=== PATIENT | male | born 1950 | race Asian ===

== ENCOUNTER 2019-02-13 01:29 | Outpatient (CLI) | payer OTHER, SELFPAY ==
--- NOTE | 2019-02-13 10:35 | MERGE_ITS ---
*[facility]* *[facility]* [address] [place] [address] Date of study: 02/13/2019 Transthoracic Echocardiography M-mode, complete 2D, complete spectral Doppler, and color Doppler *STUDY CONCLUSIONS* Summary: 1. Left ventricle: The cavity size was normal. Systolic function was mildly to moderately reduced. The estimated ejection fraction was 40%. Diffuse hypokinesis. Diastolic parameters were normal for age. There was no evidence of elevated ventricular filling pressure by Doppler parameters. 2. Aortic valve: Bicuspid. There was very mild stenosis. There was moderate regurgitation. Peak velocity (S): 1.6m/sec. Mean gradient (S): 6.7mm Hg. VTI ratio of LVOT to aortic valve: 0.45. Valve area (VTI): 1.7cm^2. 3. Mitral valve: There was moderate regurgitation directed posteriorly. 4. Right ventricle: The cavity size was normal. Wall thickness was normal. Systolic function was normal. 5. Atrial septum: No defect or patent foramen ovale was identified. 6. Pulmonary arteries: Pulmonary systolic pressure was in the range of 25mm Hg to 35mm Hg. 7. Inferior vena cava: The vessel was patent and normal in size. The respirophasic diameter changes were in the normal range (greater than or equal to 50%), consistent with normal central venous pressure. *PATIENT PRESENTATION* Height: 172.7cm ((68in) ) S/D Pressure: 117 / 71 Weight: 89.4kg ((196.6lb) ) BSA: 2.09m^2 Test start time: 10:40 AM. Test stop time: 11:40 AM. CONSULTING Unknown, Unknown PERFORMING Unknown ORDERING Leodan Baptiste REFERRING Leodan Baptiste PERFORMING [facility] CASH APPLICATIONS MANAGER RT Agnieszka Mckeon)([email or web address]), [facility] *PROCEDURE DATA* Procedure information: The patient was identified by two identifiers. This study was interpreted by [facility]. Pertinent images and digital data are archived for permanent storage and are available for subsequent review. No prior study was available for comparison. Study status: Routine. Transthoracic echocardiography. M-mode, complete 2D, complete spectral Doppler, and color Doppler. A Transthoracic Echocardiogram was performed. Scanning was performed from the parasternal, apical, subcostal, and suprasternal notch acoustic windows. Images were obtained using an [id number] cardiac ultrasound machine. Image quality was good. Study completion: The patient tolerated the procedure well. History: PMH: AI, Cardiomyopathy. I42.9, i35.1. *CARDIAC ANATOMY* Left ventricle: The cavity size was normal. Systolic function was mildly to moderately reduced. The estimated ejection fraction was 40%. Diffuse hypokinesis. The tissue Doppler parameters were abnormal. Diastolic parameters were normal for age. There was no evidence of elevated ventricular filling pressure by Doppler parameters. Aortic valve: Bicuspid. Doppler: There was very mild stenosis. There was moderate regurgitation. VTI ratio of LVOT to aortic valve: 0.45. Valve area (VTI): 1.7cm^2. Indexed valve area (VTI): 0.8cm^2/m^2. Peak velocity ratio of LVOT to aortic valve: 0.39. Valve area (Vmax): 1.4cm^2. Indexed valve area (Vmax): 0.7cm^2/m^2. Mean velocity ratio of LVOT to aortic valve: 0.4. Valve area (Vmean): 1.5cm^2. Indexed valve area (Vmean): 0.7cm^2/m^2. Mean gradient (S): 6.7mm Hg. Peak gradient (S): 10.1mm Hg. Aorta: Aortic root: The aortic root was normal in size. Ascending aorta: The ascending aorta was normal in size. Mitral valve: Doppler: There was no evidence for stenosis. There was moderate regurgitation directed posteriorly. Valve area by pressure half-time: 4.2cm^2. Indexed valve area by pressure half-time: 2cm^2/m^2. Left atrium: The atrium was normal in size. Atrial septum: No defect or patent foramen ovale was identified. Right ventricle: The cavity size was normal. Wall thickness was normal. Systolic function was normal. Pulmonic valve: Doppler: There was no evidence for stenosis. There was mild regurgitation. Peak gradient (S): 5.8mm Hg. Tricuspid valve: Doppler: There was mild regurgitation. Pulmonary artery: Poorly visualized. Pulmonary systolic pressure was in the range of 25mm Hg to 35mm Hg. Right atrium: The atrium was normal in size. Pericardium: There was no pericardial effusion. Systemic veins: Inferior vena cava: Well visualized. The vessel was patent and normal in size. The respirophasic diameter changes were in the normal range (greater than or equal to 50%), consistent with normal central venous pressure. Baseline ECG: Bradycardia. Measurements Left ventricle Value Reference LV ID, ED, PLAX 5.4 cm 3.5 - 6.0 LV ID, ES, PLAX (H) 4.3 cm 2.1 - 4.0 LV PW thickness, ED, PLAX 1.0 cm LV end-diastolic volume, 1-p A2C 118 ml LV ejection fraction, 1-p A2C 34 % LV end-diastolic volume, 1-p A4C 121 ml LV ejection fraction, 1-p A4C 37 % LV e', lateral 0.061 m/sec LV E/e', lateral 10 LV e', medial 0.051 m/sec LV E/e', medial 12 LV e', average 0.056 m/sec LV E/e', average 11 Ventricular septum Value Reference IVS thickness, ED, PLAX 1.1 cm LVOT Value Reference LVOT ID, A-P 2.2 cm LVOT area 3.7 cm^2 LVOT peak velocity, S 0.62 m/sec LVOT mean velocity, S 0.5 m/sec LVOT VTI, S 15.7 cm LVOT peak gradient, S 1.6 mm Hg LVOT mean gradient, S 1.1 mm Hg Stroke volume (SV), LVOT DP 58 ml Stroke index (SV/bsa), LVOT DP 28 ml/m^2 Aortic valve Value Reference Aortic valve peak velocity, S 1.6 m/sec Aortic valve mean velocity, S 1.25 m/sec Aortic valve VTI, S 35.0 cm Aortic mean gradient, S 6.7 mm Hg Aortic peak gradient, S 10.1 mm Hg VTI ratio, LVOT/AV 0.45 Aortic valve area, VTI 1.7 cm^2 Velocity ratio, peak, LVOT/AV 0.39 Aortic valve area, peak velocity 1.4 cm^2 Velocity ratio, mean, LVOT/AV 0.4 Aortic valve area, mean velocity 1.5 cm^2 Aortic valve area/bsa, mean velocity 0.7 cm^2/m^2 Aortic regurg deceleration 280 cm/s^2 Aortic regurg pressure half-time 494 ms Aorta Value Reference Aortic root ID, ED 3.6 cm Ascending aorta ID, A-P, S 3.4 cm Left atrium Value Reference LA ID, A-P, ES 3.6 cm LA ID/bsa, A-P 1.7 cm/m^2 <=2.2 LA area, ES, A4C 16.4 cm^2 8.8 - 23.4 LA area, ES, A2C 19 cm^2 LA volume, ES, 2-p 50 ml LA volume/bsa, ES, 2-p 24 ml/m^2 LA/aortic root ratio 1.01 Mitral valve Value Reference Mitral E-wave peak velocity 0.63 m/sec Mitral A-wave peak velocity 0.89 m/sec Mitral deceleration time 182 ms 150 - 230 Mitral pressure half-time 53 ms Mitral E/A ratio, peak 0.7 Mitral valve area, PHT, DP 4.2 cm^2 Tricuspid valve Value Reference Tricuspid regurg peak velocity 2.5 m/sec Tricuspid peak RV-RA gradient 25.9 mm Hg Right atrium Value Reference RA area, ES, A4C 11.7 cm^2 8.3 - 19.5 Pulmonic valve Value Reference Pulmonic peak gradient, S 5.8 mm Hg Legend: (L) and (H) patrciia values outside specified reference range. I have personally reviewed the images and have reviewed and edited the reported findings. Electronically signed by Mayco Bashir MD 02/13/2019 17:13
== END 2019-02-13 01:49 ==
PROVIDERS: Visit Provider Student in an Organized Health Care Education/Training Program
DX: I35.2 Nonrheumatic aortic (valve) stenosis with insufficiency (principal); I42.9 Cardiomyopathy, unspecified; I34.0 Nonrheumatic mitral (valve) insufficiency
CPT/HCPCS: 93306

== ENCOUNTER 2019-04-20 09:07 | Outpatient (REF) | payer OTHER, SELFPAY ==
[2019-04-20 10:30] LABS: Abs Immature Grans 0.01 k/cumm (0.0-0.09); Absolute Basophil Count 0.02 k/cumm (0.0-0.2); Absolute Eosinophil Count 0.14 k/cumm (0.0-0.7); Absolute Monocyte Count 0.85 k/cumm (0.11-0.7); Absolute Neutrophil Count 2.54 k/cumm (1.2-6.7); Basophils % 0.4; Eosinophils % 2.5; HCT 46.4 % (40.0-50.0); HGB 15.4 g/dL (13.5-17.5); Immature Grans % 0.2; Lymphocytes % 37.1; Mean Corp. HGB Concentration 33.2 g/dL (32.0-36.0); Mean Corpuscular Hemoglobin 29.8 pg (27.0-33.0); Mean Corpuscular Volume 89.9 fL (80-95); Mean Platelet Volume 11.2 fL (8.0-11.0); Neutrophils % 44.8; Platelet Count 185 x1000/uL (130-400); RBC 5.16 m/cumm (4.50-6.00); RBC Distribution Width 13.6 % (11.8-14.1); White Blood Cell Count 5.66 k/cumm (4.4-10.8)
[2019-04-20 10:49] LABS: Magnesium 2.2 mg/dL (1.8-2.4); NT-proBNP 98 pg/mL; TSH (W/Ref FT4) 2.75 uIU/mL (0.36-3.74)
[2019-04-20 14:03] LABS: Calculated LDL 173 mg/dL; Cholesterol 252 mg/dL (50-200); HDL Cholesterol 44 mg/dL (40-60); Triglyceride 175 mg/dL (30-150)
[2019-04-21 11:06] LABS: ALT 28 U/L (12-78); AST 18 U/L (15-37); Alkaline Phosphatase 100 U/L (46-116); Bilirubin, Direct 0.13 mg/dL (0.00-0.20); Bilirubin, Total 0.9 mg/dL (0.2-1.0); Total Protein 7.4 g/dL (6.4-8.2)
== END 2019-04-20 09:27 ==
LOC: LBN 09:07
PROVIDERS: Visit Provider Student in an Organized Health Care Education/Training Program
DX: I42.9 Cardiomyopathy, unspecified (principal); I10 Essential (primary) hypertension; I48.0 Paroxysmal atrial fibrillation
CPT/HCPCS: 80061; 80076; 83721; 83735; 83880; 84443; 85025

== ENCOUNTER 2019-04-21 09:59 | Outpatient (REF) | payer OTHER, SELFPAY ==
[2019-04-21 10:23] LABS: INR 0.9 (0.9-1.1); Prothrombin Time 8.9 sec (9.3-11.0)
== END 2019-04-21 10:19 ==
LOC: LBN 09:59
PROVIDERS: Visit Provider Student in an Organized Health Care Education/Training Program
DX: I42.9 Cardiomyopathy, unspecified (principal); I48.0 Paroxysmal atrial fibrillation; Z79.01 Long term (current) use of anticoagulants
CPT/HCPCS: 85610

== ENCOUNTER 2020-07-22 00:23 | Outpatient (CLI) | payer OTHER, SELFPAY ==
--- NOTE | 2020-07-22 08:45 | DI.NM_ITS ---
APPROVED REPORT Exam: Exercise Treadmill Patient Location: Out-Patient Room/Bed: BMI: 29.38 Comment: frequent PVCs, trigeminy Indications: Dyspnea on exertion. Medical History Medical History: Aortic Regurgitation, Bicuspid Aortic Valve, Mitral Regurgitation, Paroxysmal Atrial Fibrillation, Ischemic Cardiomyopathy, CAD, HTN, HLD, Cerebral Aneurysm. Cardiac Medications: Losartan. Carvedilol. Rosuvastatin. ASA. Co-Q 10. , Allergies: No known drug allergies Cardiac Risk Factors: HTN, Hyperlipidemia Previous Cardiac Procedures: PCI w/ stents x 2 (2009) Pretest Chest Pain Characteristics: No chest pain Exercise History: Physically active Lung Sounds: Clear to auscultation Heart Sounds: Regular Stress Test Details Test: Exercise stress testing was performed using a Telly protocol. Nuclear Acquisition: Rest Tc-99m/Stress Tc-99m 1 day Rest Isotope: Tc-99m Sestamibi. Dose: 12.3 Date: 07/22/2020 Injection Time: 0900 Stress Isotope: Tc-99m Sestamibi. Dose: 37.5 Date: 07/22/2020 Injection Time: 1012 HR Resting HR Supine: 64 bpm Max Heart Rate (APMHR): 152.635305 bpm Resting HR Standin bpm Target HR (85% APMHR): 129.405235 bpm Max HR Achieved: 138 bpm % of APMHR: 90.79 Recovery HR: 92 bpm HR response to stress: Normal HR response to stress BP Resting BP Supine: 120/88 mmHg Resting BP Standin/84 mmHg Max BP: 174/62 mmHg Recovery BP: 130/82 mmHg BP response to stress: Normal blood pressure response to stress. ECG Ectopy: frequent PVCs, trigeminy Comment: 1mm ST elevation noted in lead V2. Stress ECG: Sinus Tachycardia ST Change: no significant ST segment changes noted Arrhythmia: frequent PVCs, bigeminy, trigeminy, couplet. Recovery ST Change: no significant ST segment changes noted Recovery Arrhythmia: frequent PVCs, bigeminy, trigeminy, couplet, 3 beat VT. Rare PAC. Clinical Reason for Termination: Fatigue Stress Symptoms: Dyspnea Exercise duration: 9 min14 sec Highest Stage Reached: Stage 4: 4.2 mph at 16% grade. Exercise capacity: 10.53 METs Stress ECG Conclusion 1. The resting electrocardiogram was within normal limits 2. Patient exercised on the Telly protocol and completed a workload of 10.53 METS, limited by dyspnea 3. Normal heart rate and blood pressure response to exercise. The patient achieved 90% of predicted heart rate for age 4. Electrocardiographically there was no evidence of myocardial ischemia 5. Ventricular ectopic beats couplets and one triplet were noted Stress Test Summary STAGE Time (mins) Speed (mph) Grade (%) HR BP SYMPTOMS METS Supine 64 120/88 Standing 67 116/84 1 3 1.7 10 103 126/78 4.6 2 6 2.5 12 114 134/70 7 3 9 3.4 14 135 166/64 SOB 10.2 1 min recovery 105 174/62 3 min recovery 89 158/68 6 min recovery 92 130/82 MPI Conclusion There is no evidence of myocardial ischemia or prior infarction Radiologist Interpretation Radiologist agrees with Sticker Machine Operator's Interpretation. Radiologist Interpretation by: Jesus Gomez MD Interpretation Date/Time: 07/23/2020 09:07:50
== END 2020-07-22 00:43 ==
PROVIDERS: PCP Student in an Organized Health Care Education/Training Program; Visit Provider Internal Medicine Cardiovascular Disease
DX: R06.09 Other forms of dyspnea (principal); I10 Essential (primary) hypertension; E78.5 Hyperlipidemia, unspecified; I08.0 Rheumatic disorders of both mitral and aortic valves; I25.5 Ischemic cardiomyopathy; I25.10 Atherosclerotic heart disease of native coronary artery without angina pectoris
CPT/HCPCS: 78452; 93017

== ENCOUNTER 2020-11-30 08:15 | Outpatient (REF) | payer OTHER, SELFPAY ==
[2020-11-30 09:12] LABS: ALT 29 U/L (16-63); AST 16 U/L (15-37); Calculated LDL 88 mg/dL (<100); Cholesterol 175 mg/dL (<200); HDL Cholesterol 49 mg/dL (40-60); Triglyceride 190 mg/dL (<150)
[2020-12-02 09:43] LABS: PSA, Screening 0.4 ng/mL (0.0-4.5)
== END 2020-11-30 08:16 | disposition home or self-care (01) ==
LOC: LBN 08:15
PROVIDERS: PCP Student in an Organized Health Care Education/Training Program; Visit Provider Student in an Organized Health Care Education/Training Program
DX: E78.00 Pure hypercholesterolemia, unspecified (principal); N40.0 Benign prostatic hyperplasia without lower urinary tract symptoms; Z12.5 Encounter for screening for malignant neoplasm of prostate
CPT/HCPCS: 80061; 84153; 84450; 84460

== ENCOUNTER 2021-01-22 03:22 | Outpatient (CLI) | payer OTHER, SELFPAY ==
[2021-01-22 10:19] LABS: Source Nasal/Nares
[2021-01-22 17:21] LABS: COVID-19 PCR Negative (Negative)
== END 2021-01-22 03:23 | disposition home or self-care (01) ==
LOC: LBO 03:23
PROVIDERS: PCP Student in an Organized Health Care Education/Training Program; Visit Provider Surgery
DX: Z20.822 Contact with and (suspected) exposure to COVID-19 (principal); Z01.818 Encounter for other preprocedural examination
CPT/HCPCS: 87635

== ENCOUNTER 2021-01-24 07:18 | Day surgery (SDC) | payer OTHER, SELFPAY ==
[2021-01-24 07:20] VITALS: BP 114/67; PULSE 59; RESP 18; TEMP 36.6; O2SAT 94
--- NOTE | 2021-01-24 07:51 | ANES.PREOP_ITS ---
General Info Date of Service Date Performed: 01/24/21 Height: 5 ft 8 in Weight: 96.842 kg Body Mass Index (BMI): 32.4 Surgical Procedure: Operation Date: 01/24/21 08:20 Proposed Procedures Side Surgeon craig Haley, DO Meds Allergies and Home Medications Allergies Allergy/AdvReac Type Severity Reaction Status Date / Time lisinopril AdvReac cough Verified 01/24/21 07:43 simvastatin AdvReac myalgias Verified 01/24/21 07:43 Home Medication Medication Instructions Recorded ascorbic acid (vitamin C) 500 mg 2 gm PO DAILY tab 04/12/19 tablet vitamin B complex 1 cap PO DAILY 04/12/19 aspirin 81 mg tablet,delayed 81 mg PO DAILY #90 tab 04/19/19 release calcium-magnesium 500 mg-250 mg 2 tab PO DAILY tab 04/19/19 tablet coenzyme Q10 100 mg capsule 100 mg PO DAILY 04/19/19 vitamin E (dl, acetate) 400 unit 400 unit PO DAILY 04/19/19 capsule rosuvastatin 10 mg tablet 10 mg PO QHS #90 tab 06/27/19 beta carotene 25,000 unit capsule 25,000 unit PO DAILY 07/11/20 carvedilol 25 mg tablet 25 mg PO BID #180 tab 07/11/20 losartan 100 mg tablet 100 mg PO DAILY #90 tab 07/11/20 omega-3 fatty acids 500 mg capsule 500 mg PO DAILY 10/17/20 bisacodyl 5 mg tablet,delayed 5 mg PO ONCE #4 tab 12/26/20 release polyethylene glycol 3350 17 17 g PO ONCE #238 g 12/26/20 gram/dose oral powder Current Visit Medications: Current Medications Generic Name Dose Route Start Last Admin Trade Name Freq PRN Reason Stop Dose Admin Ringer's Solution 1,000 mls @ 80 mls/hr 01/24/21 06:00 IV 02/22/21 23:59 INFUSION MAIKEL IV Miscellaneous Supplies 1 each 01/24/21 06:00 Iv Access IV 02/22/21 23:59 DIRECTED MAIKEL Sodium Chloride 0 ml 01/24/21 06:00 Normal Saline Flush 10 Ml Syr IV 02/22/21 23:59 PRN PRN Sodium Chloride 0 ml 01/24/21 06:00 Normal Saline 10 Ml Vial IJ 02/22/21 23:59 DIRECTED PRN Sterile Water 0 ml 01/24/21 06:00 Water,Injection,Sterile 10 Ml Vial IJ 02/22/21 23:59 DIRECTED PRN PFSH Active Problems Active Problems: Problem Status Onset Code Sensorineural hearing loss, bilateral H90.3 Hypercholesterolemia E78.00 Shortness of breath R06.02 Colon cancer screening Z12.11 Seborrheic keratosis L82.1 Suspicious nevus D22.9 Xerosis cutis L85.3 Erectile dysfunction N52.9 Hyperlipidemia E78.5 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 Aneurysm of posterior communicating artery Aortic regurgitation due to bicuspid aortic valve CAD (coronary artery disease) Cardiomyopathy Erectile dysfunction Essential hypertension History of rectal cancer Tubulovillous adenoma of rectum, s/p colectomy (reversed 2012). [place] 2014. PT. DENIES THIS Hyperlipidemia Mitral regurgitation PAF (paroxysmal atrial fibrillation) PT. STATES HE IS UNAWARE OF THIS AND HAS NEVER RECIEVED A FORMAL DX OF THIS Seborrheic keratosis Suspicious nevus Transient global amnesia Xerosis cutis Surgical History Surgical History (Updated 01/24/21 @ 07:41 by Elin Velasco) H/O heart artery stent x2 History of colectomy with colostomy for 4 months Status post carotid surgery (07/18/19) coil embolization rgt carotid, [facility] 06/2019 Tobacco Smoking/Tobacco Use Status: Never Alcohol Alcohol Intake: current Alcohol intake frequency: a few times a month Alcohol type: beer Substance Use Substance use: Never Substance use type: does not use Vital Signs and Lab Results Lab Results Blood Type / Crossmatch: No Data to Display Complete Blood Count: White Blood Count 5.66 k/cumm (4.4-10.8) 04/20/19 10:25 04/20/19 Red Blood Count 5.16 m/cumm (4.50-6.00) 04/20/19 10:25 04/20/19 Hemoglobin 15.4 g/dL (13.5-17.5) 04/20/19 10:25 04/20/19 Hematocrit 46.4 % (40.0-50.0) 04/20/19 10:25 04/20/19 Platelet Count 185 x1000/uL (130-400) 04/20/19 10:25 04/20/19 Complete Metabolic Panel: Magnesium Level 2.2 mg/dL (1.8-2.4) 04/20/19 07:30 04/20/19 Albumin 4.0 g/dL (3.4-5.0) 04/20/19 07:30 04/20/19 Liver Function Panel: Alanine Aminotransferase (ALT/SGPT) 29 U/L (16-63) 11/30/20 04:45 11/30/20 Aspartate Amino Transf (AST/SGOT) 16 U/L (15-37) 11/30/20 04:45 11/30/20 Coagulation Panel: INR International Normalized Ratio 0.9 (0.9-1.1) 04/21/19 07:40 04/21/19 Prothrombin Time 8.9 sec (9.3-11.0) L 04/21/19 07:40 04/21/19 Cardiac Panel: AH-Fkx-V-Type Natriuretic Peptide 98 pg/mL (-299) 04/20/19 07:30 04/20/19 Arterial Blood Gas: No Data to Display Venous Blood Gas: No Data to Display Pancreas Panel: No Data to Display Thyroid Panel: Thyroid Stimulating Hormone (TSH) 2.75 uIU/mL (0.36-3.74) 04/20/19 07:30 04/20/19 Infectious Disease: Coronavirus (COVID-19)(PCR) Negative (Negative) 01/22/21 08:46 01/22/21 Coronavirus 2019 Source Nasal/nares 01/22/21 08:46 01/22/21 Blood Cultures: No Data to Display Toxicology Panel: No Data to Display Imaging and Studies Imaging and Studies EKG Summary:: 10/17/20 Exam: Resting ECG Patient Location: O HR:72 bpm ECG Measurements Heart Rate 72 AXIS WA 174 P 39 QRSd 84 QRS -5 QT 418 T 27 QTc 458 Conclusion Sinus rhythm...normal P axis, V-rate 60- 99 Ventricular trigeminy...trigeminy string>6 w/ V complexes Probable left atrial enlargement...P >50mS, <-0.10mV V1 Stress Test Summary:: 07/22/2020 Stress ECG Conclusion 1. The resting electrocardiogram was within normal limits 2. Patient exercised on the Telly protocol and completed a workload of 10.53 METS, limited by dyspnea 3. Normal heart rate and blood pressure response to exercise. The patient achieved 90% of predicted heart rate for age 4. Electrocardiographically there was no evidence of myocardial ischemia 5. Ventricular ectopic beats couplets and one triplet were noted Echocardiogram Summary:: 02/13/2019 Summary: 1. Left ventricle: The cavity size was normal. Systolic function was mildly to moderately reduced. The estimated ejection fraction was 40%. Diffuse hypokinesis. Diastolic parameters were normal for age. There was no evidence of elevated ventricular filling pressure by Doppler parameters. 2. Aortic valve: Bicuspid. There was very mild stenosis. There was moderate regurgitation. Peak velocity (S): 1.6m/sec. Mean gradient (S): 6.7mm Hg. VTI ratio of LVOT to aortic valve: 0.45. Valve area (VTI): 1.7cm^2. 3. Mitral valve: There was moderate regurgitation directed posteriorly. 4. Right ventricle: The cavity size was normal. Wall thickness was normal. Systolic function was normal. 5. Atrial septum: No defect or patent foramen ovale was identified. 6. Pulmonary arteries: Pulmonary systolic pressure was in the range of 25mm Hg to 35mm Hg. 7. Inferior vena cava: The vessel was patent and normal in size. The respirophasic diameter changes were in the normal range (greater than or equal to 50%), consistent with normal central venous pressure. Anesthesia Assessment and Plan Anesthesia History Personal History: No History of Anesthesia Complications Family History: No Family History of Anesthesia Complications Exercise Tolerance Exercise Tolerance: Metabolic Equivalents>4 Pertinent Negatives Pertinent Negatives: No Symptoms of GERD Cardiac & Pulmonary Exam Cardiac Exam: Normal S1/S2 Heart Sounds Pulmonary Exam: Clear Bilateral Breath Sounds Airway Exam Known Difficult Airway: No Mallampati Class: 2 Mouth Opening: Normal (> 3cm) Thyromental Distance: Greater than 3 cm Neck Range of Motion: Full ROM Neck Circumference: Normal Teeth Condition: Normal Dentition ASA Classification ASA Score: ASA 3 ASA Emergency: No NPO Status NPO Status: NPO Clears >2 hours, Solids >8 hours Anesthesia Plan Anesthesia Technique: General Anesthesia Airway Planned: Natural Airway Monitors Used: Standard Monitors
[2021-01-24] MEDS: Lactated Ringers 1,000 ML 80 ML IV (08:01)
[2021-01-24 08:19] VITALS: BMI 32.4
--- NOTE | 2021-01-24 08:52 | W.PM.DSUDISC ---
Discharge Plan Disposition Patient Disposition: HOME Condition: Good Discharge Details Reason For Visit: colon scope Attending Provider: Rebecca Haley Primary Care Provider: Sofy Will Home Meds and New Rx's Prescriptions: Continued ascorbic acid (vitamin C) 500 mg tablet 2 gm PO DAILY RF: 0 vitamin B complex capsule 1 cap PO DAILY RF: 0 vitamin E (dl, acetate) 400 unit capsule 400 unit PO DAILY RF: 0 coenzyme Q10 [CoQ-10] 100 mg capsule 100 mg PO DAILY RF: 0 calcium-magnesium 500-250 mg tablet 2 tab PO DAILY RF: 0 aspirin [Aspir-81] 81 mg tablet,delayed release (DR/EC) 81 mg PO DAILY Qty: 90 RF: 3 rosuvastatin 10 mg tablet 10 mg PO QHS Qty: 90 RF: 3 Hold Instructions: Not yet started. 07/11/20 EO beta carotene 25,000 unit capsule 25,000 unit PO DAILY RF: 0 carvedilol 25 mg tablet 25 mg PO BID Qty: 180 RF: 3 losartan 100 mg tablet 100 mg PO DAILY Qty: 90 RF: 3 omega-3 fatty acids 500 mg capsule 500 mg PO DAILY RF: 0 Discontinued bisacodyl [Dulcolax (bisacodyl)] 5 mg tablet,delayed release (DR/EC) 5 mg PO ONCE Qty: 4 RF: 0 polyethylene glycol 3350 17 gram/dose powder 17 g PO ONCE Qty: 238 RF: 0 Discharge Instructions Additional Instructions: Findings:post surgical changes noted. Otherwise colon is normal today. Follow up: No further screening colonoscopies required Please call if you develop: fevers >101.5 Nausea or Vomiting Abdominal pain that is not transient DAY SURGERY UNIT POST COLONOSCOPY INSTRUCTIONS 1. Because there will be medication in your system for the next 24 hours, you may feel a little sleepy. Your coordination will be affected. Therefore: a. Do not drive or operate dangerous equipment for 24 hours. b. Do not drink alcohol beverages for 24 hours (not even beer). c. Plan to go home and rest for the day. 2. Generally there are no restrictions on your activity after a day or so has gone by, but you may feel a bit fatigued for a few days. 3 After you arrive home you may have a light meal and return to a normal diet as you can tolerate it without feeling sick to your stomach. 4. After surgery, you may feel pain or discomfort. This should be only transient, but if it persists please contact your doctor. 5. If there are any questions regarding the findings of your procedure, please feel free to contact your doctor. 6. If you are unable to contact your doctor with a problem, contact the hospital at [phone]. 7. Continue all your regular medications unless directed otherwise. I understand the above instructions and have no questions. Signature of Patient or Responsible Adult Escort Date/Time Name of Responsible Adult Escort Signature of Nurse Date/Time Activity:: No lifting over 20 pounds or strenuous activity x24 hours Diet:: Small late meals x24 hours. Discharge Orders Discharge Orders: Discharge Order (Routine); Ordered 01/24/21 Ordered By: Rebecca Haley DS: Diagnosis Discharge Diagnosis (1) Colon cancer screening: Status: Acute
--- NOTE | 2021-01-24 08:55 | W.COLOREPORT ---
Date of service: 01/24/21 Time of Service: 08:56 Colonoscopy Report Date of procedure: 01/24/21 Pre-op diagnosis general: CRC screen Post-op diagnosis procedure note: same Surgeon: Rebecca Haley Anesthesia Type: General:No Airway Estimated blood loss (mL): 0 Pathology: none sent Complications: None Disposition: no change Prep: Miralax/Dulcolax Retraction Time: 7mins Procedure Description: After informed consent was obtained the patient was taken to the procedure room and placed in a left decubitous position. Monitors were applied and a time out was done. The patients name, date of , procedure, allergies to medications and metal in their body was reviewed. The patient was then sedated. Once sedated and comfortable a rectal exam was done. External exam was normal. Internal exam revealed a normal sphincter tone and no palpable masses. The scope was then introduced and retrofelexed. No internal hemorrhoids were identified. The scope was then advanced to the cecum w/out difficulty. The TI and appendiceal orifice were identified. The prep was good The scope was then slowly retracted over 7 minutes back, (patient has a shorter colon) Into the rectum. There are no polyps, AVMs, or diverticula.. He has had 2 previous colon surgeries and removal of portions of the sigmoid colon. There is total length is 70 cm. Both anastomotic sites are noted at 5 cm and 10 cm. They are widely patent. There is no sign of any diverticula. There are no strictures, bleeding or other abnormalities at the anastomosis. The scope was removed and the patient was woken up and taken back to Same day surgery in stable condition. The patient tolerated the procedure well and there were no immediate complications. Follow up: The patient does not require any further screening colonoscopies, unless they develop changes in bowel habits or other new gastrointestinal complaints.
--- NOTE | 2021-01-24 08:59 | W.ANESPOSTOP ---
Postoperative Evaluation Date, Time and Location Date Performed: 01/24/21 Time Performed: 09:00 Patient Location: Day Surgery Unit Vital Signs Most Recent Imported Vital Signs: Most Recent Vital Signs Temp Pulse Resp BP Pulse Ox 36.6 C 59 L 18 114/67 94 01/24/21 07:20 01/24/21 07:20 01/24/21 07:20 01/24/21 07:20 01/24/21 07:20 Most Recent Manually Entered Vital Signs: Adult Blood Pressure: 94/59 Heart Rate: 76 Respirations: 16 Oxygen Saturation (%): 93 Temperature (C): 36.3 C Pain Score (0-10 Scale): 0 Assessment Mental Status: Awake (Alert & Oriented to Patient Baseline) Airway and Respiratory Function: Patent airway with normal (patient baseline) respiratory exam Cardiovascular Function: Hemodynamically Stable Hydration Status: Adequately Hydrated Nausea & Vomiting: No Nausea or Vomiting Pain: Pt. Denies Any Pain Peripheral Nerve Block: Patient did not receive a nerve block
[2021-01-24 09:00] VITALS: BP 94/59; PULSE 76; RESP 16; TEMP 36.3; O2SAT 93
[2021-01-24 09:01] VITALS: BP 94/59; PULSE 76; RESP 16; TEMPC 36.3; O2SAT 93
[2021-01-24 09:35] VITALS: BP 112/80; PULSE 64; RESP 16; TEMP 36.1; O2SAT 93
== END 2021-01-24 09:52 | disposition home or self-care (01) ==
PROVIDERS: PCP Student in an Organized Health Care Education/Training Program; Visit Provider Surgery
PROC: 0DJD8ZZ Inspection of Lower Intestinal Tract, Via Natural or Artificial Opening Endoscopic (ICD-10-PCS; CPT 45378; principal; 2021-01-24 08:15)
DX: Z12.11 Encounter for screening for malignant neoplasm of colon (principal); Z86.010 Personal history of colon polyps; Z98.0 Intestinal bypass and anastomosis status
CPT/HCPCS: 45378; J2001

== ENCOUNTER 2021-07-29 10:15 | Outpatient (CLI) | payer OTHER, SELFPAY ==
[2021-07-30 00:57] LABS: COVID-19 RT-PCR UVMMC Result Negative (Negative)
== END 2021-07-29 10:16 | disposition home or self-care (01) ==
LOC: LBO 10:16
PROVIDERS: PCP Student in an Organized Health Care Education/Training Program; Visit Provider Nurse Practitioner Family
DX: Z20.822 Contact with and (suspected) exposure to COVID-19 (principal)
CPT/HCPCS: U0003

== ENCOUNTER 2021-08-14 01:24 | Outpatient (CLI) | payer OTHER, SELFPAY ==
--- NOTE | 2021-08-14 | DI.US_ITS ---
APPROVED REPORT EXAM: Comprehensive 2D, Doppler, and color-flow Echocardiogram Patient Location: Out-Patient [facility] Jewel: Selena Tamayo RDCS (AE) Indications: Congenital bicuspid aortic valve, Ischemic cardiomyopathy Other Information Study Quality: Adequate Conclusion Borderline dilated left ventricle. Normal left ventricular wall thickness. Estimated ejection fract ion is 45 to 50%. There is global hypokinesis Normal right ventricular size and systolic function The left atrium is mildly dilated. The right atrium is normal in size The aortic valve is probably bicuspid. There is mild aortic regurgitation. There is no aortic steno sis Normal mitral valve with trace to mild regurgitation Normal tricuspid valve with trace regurgitation. Estimated right ventricular systolic pressure is 24 mmHg Aortic root and ascending aorta are normal in size Wall motion Left Ventricle The left ventricle is borderline dilated Left ventricular systolic function is moderately decreased. There is normal left ventricular wall thickness. There is global hypokinesis of the left ventricle. T here is no ventricular septal defect visualized. LVEF is 45-50%. Right Ventricle The right ventricle is normal size. The right ventricular systolic function is normal. The RVSP is 24 .3mmHg. Atria Left atrium is mildly dilated. The right atrium size is normal. The interatrial septum is intact with no evidence for an atrial septal defect. Aortic Valve The aortic valve is possibly bicuspid. Leaflet motion is not restricted There is no aortic valvular s tenosis. Mild aortic regurgitation. Mitral Valve The mitral valve is normal in structure. No evidence of mitral valve stenosis. Trace to mild mitral r egurgitation. Tricuspid Valve The tricuspid valve is normal in structure. There is no tricuspid valve stenosis. Trace tricuspid reg urgitation. Pulmonic Valve The pulmonary valve is normal in structure. There is no pulmonic valvular stenosis. There is no pulmo pepe valvular regurgitation. Great Vessels The aortic root is normal in size. The ascending aorta is normal in size. IVC is normal in size and c ollapses >50% with inspiration. Pericardium There is no pericardial effusion. 2D Dimensions IVSD d PLAX 1.00 cm M: 0.6-1.2 LV Vol A2C d MOD 170.8 mL LVPW d PLAX 1.03 cm M: 0.6 - 1.2 LV Vol A4C d MOD 142.0 mL LVID d PLAX 5.63 cm M: 4.2 - 5.8 LA vol/ BSA A2C s A-L 37.3 mL/m2 LVDs 4.40 cm M: 2.5 - 4.0 LA vol/ BSA A4C s A-L 20.6 mL/m2 Ao Root d 3.36 cm M: 3.1 - 3.7 LA Vol/ BSA Biplane s A-L 28.6 mL/m2 RA Area A4C 13.76 cm2 LA Area A4C s MOD 16.17 cm2 RA Vol/ BSA A4C s A-L 14.3 mL/m2 LA Area A2C s MOD 22.49 cm2 Ao Asc Diam d 3.43 cm M: 2.6 - 3.4 LV EF A4C MOD 45.6 % LV EF Teichholz 42.6 % LV EF A2C MOD 41.3 % LVEF (De La Cruz's) 43.46 % M: 52 - 72 LV EF Biplane MOD 43.5 % LV Volume 116.28 mL M: 62 - 150 SV 67.77 mL LV Volume Index 57.28 mL/m2 M: 34 - 74 SV Index 33.30 mL/m2 LV Vol Biplane MOD 155.9 mL FS 21.20 % M-Mode TAPSE 2.18 cm (M/F) >1.7 LV Diastology MV E' medial 0.046 (>0.07 m/s) E/A Ratio 0.6 LV E/e MED 10.70 (<14) MV E Vmax 0.49 (0.4-1.3 m/s) MV E' lateral 0.077 (>0.1 m/s) MV A Vmax 0.80 (0.4-1.3 m/s) LV E/e LAT 6.35 (<14) MV E/A Ratio 0.60 MV E/E' medial 10.74 MV E/E' lateral 6.39 Aortic Valve LVOT Area 3.89 cm2 AoV Area Vmax 2.06 cm2 LVOT Vmax 0.87 m/s AoV Area/ BSA (Vmax) 1.01 cm2/m2 LVOT Mean Landon. 0.60 m/s KIRAN Mean Landon. 2.06 cm2 LVOT Peak Grad 3.0 mmHg KIRAN Mean Landon. Index 1.01 cm2/m2 LVOT Mean Grad 1.6 mmHg AR DT 1819 msec LVOT VTI 0.179 m AR PHT 528 msec LVOT Diam s 2.20 cm AoV Vmax 1.64 m/s Velocity Ratio 0.53 AoV Mean Landon. 1.13 m/s AoV Peak Grad 10.8 mmHg LVOT SV 69.67 mL AoV Mean Grad 5.8 mmHg AoV VTI 0.297 m AoV Area VTI 2.35 cm2 AoV Area/ BSA (VTI) 1.15 cm/m2 Mitral Valve MV DT 387 (160-240 msec) MR Vmax 4.82 m/s MV PHT 112 msec MR VTI 1.591 m MV Area PHT 1.96 cm2 MR Peak Grad 92.8 mmHg MV VTI 0.260 m MR Mean Grad 59.2 mmHg MV Area VTI 2.68 (4.0-6.0 cm2) Pulmonary Valve PV Vmax 1.12 (0.5-1.5 m/s) RVOT Peak Gr. 0.75 mmHg PV Peak Grad 5.1 mmHg RVOT Mean Gr. 0.45 mmHg PV Mean Grad 3.1 mmHg RVOT VTI 0.069 m PV VTI 0.202 m RVOT Vmax 0.43 m/s Tricuspid Valve TR Peak Grad 21.2 mmHg TR Vmax 2.31 m/s RA Pressure 3.00 mmHg RVSP (TR) 24.3 mmHg
== END 2021-08-14 01:44 ==
PROVIDERS: PCP Student in an Organized Health Care Education/Training Program; Visit Provider Internal Medicine Cardiovascular Disease
DX: Q23.1 Congenital insufficiency of aortic valve (principal); I25.5 Ischemic cardiomyopathy; I08.0 Rheumatic disorders of both mitral and aortic valves
CPT/HCPCS: 93306

== ENCOUNTER 2021-08-15 18:31 | Emergency (ER) | payer OTHER, SELFPAY ==
[2021-08-15] VITALS (52 sets, daily range): BP systolic 89–152; BP diastolic 30–89; PULSE 66–124; RESP 9–27; TEMP 36.6–36.7; O2SAT 91–99
--- NOTE | 2021-08-15 18:30 | RT.EKG_ITS ---
APPROVED REPORT Exam: Resting ECG Reason for Exam: syncope Patient Location: E HR:68 bpm ECG Measurements Heart Rate 68 AXIS IL 171 P 62 QRSd 95 QRS 12 QT 428 T 33 QTc 456 Conclusion Sinus rhythm...normal P axis, V-rate 60- 99 Ventricular premature complex...V complex w/ short R-R interval Probable left atrial enlargement...P >50mS, <-0.10mV V1 no stemi
--- NOTE | 2021-08-15 18:45 | DI.RAD_ITS ---
Exam(s) XR CHEST 2V PA LATERAL EXAM: XR CHEST 2V PA LATERAL CLINICAL HISTORY: general malaise TECHNIQUE: 2D digital imaging was performed. COMPARISON: No exams were available for comparison FINDINGS: The heart is not enlarged. The lungs are clear and well expanded. No pleural effusion seen. Mediastin al contours appear intact. IMPRESSION: Normal chest. RADIATION DOSE DELIVERED: Total DLP
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
[2021-08-15] MEDS: Ondansetron O.D.T. 4 MG TABEF (18:58)
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
[2021-08-15] MEDS: Normal Saline 1,000 ML 150 ML IV (19:30)
[2021-08-15 19:39] LABS: Source Nasal/Nares
[2021-08-15 19:46] LABS: Abs Immature Grans 0.01 10^3/uL (0.0-0.06); Absolute Basophil Count 0.02 10^3/uL (0.0-0.2); Absolute Eosinophil Count 0.14 10^3/uL (0.0-0.7); Absolute Lymphocyte Count 0.92 10^3/uL (1.2-3.4); Absolute Monocyte Count 0.65 10^3/uL (0.1-0.8); Absolute Neutrophil Count 4.14 10^3/uL (1.2-6.7); Basophils % 0.3; Eosinophils % 2.4; HCT 47.3 % (40.0-50.0); HGB 15.7 g/dL (13.5-17.5); Immature Grans % 0.2; Lymphocytes % 15.6; MCH 29.5 pg (27.0-33.0); MCHC 33.2 % (32.0-36.0); MCV 88.7 fL (80-95); MPV 11.3 fL (8.0-11.0); Monocytes % 11.1; Neutrophils % 70.4; Nucleated RBC 0 %; Platelet Count 117 10^3/uL (130-400); RBC 5.33 10^6/uL (4.36-5.78); RDW 12.8 % (11.8-14.1); RDW-SD 41.7 fL; WBC 5.88 10^3/uL (4.4-10.8)
[2021-08-15 19:58] LABS: ALT 25 U/L (16-63); AST 27 U/L (15-37); Albumin 3.6 g/dL (3.4-5.0); Alkaline Phosphatase 80 U/L (46-116); Anion Gap 9.7 mmol/L (3-11); BUN 26 mg/dL (7-18); Bilirubin, Total 0.8 mg/dL (0.2-1.0); CO2 26.3 mmol/L (21.0-32.0); CREATININE 1.2 mg/dL (0.70-1.30); Calcium 8.3 mg/dL (8.5-10.1); Chloride 100 mmol/L (98-107); Glucose 145 mg/dL (74-106); Potassium 3.9 mmol/L (3.5-5.1); Sodium 136 mmol/L (136-145); Total Protein 7.4 g/dL (6.4-8.2)
[2021-08-15 20:00] LABS: Troponin I < 0.05 ng/mL (<0.06)
[2021-08-15 20:06] LABS: Magnesium 2.2 mg/dL (1.8-2.4); TSH 2.43 uIU/mL (0.36-3.74)
[2021-08-15 20:10] LABS: Bilirubin Negative (Negative); Blood Negative (Negative); Clarity Clear (Clear); Glucose Negative (Negative); Ketones 40 mg/dL (Negative); Leukocyte Esterase Negative (Negative); Nitrite Negative (Negative); Specific Gravity >= 1.030 (1.005-1.025)
[2021-08-15 20:19] LABS: Bacteria Negative HPF (Negative); Crystals Negative HPF (Negative); Epithelial Cells Negative HPF (Negative); Mucus Heavy (Negative); RBC 0-2 HPF (0-2); WBC 0-2 HPF (0-5)
[2021-08-15 20:20] LABS: C & S Indicated? No
[2021-08-15 20:24] LABS: COVID-19 PCR POSITIVE (Negative)
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
--- NOTE | 2021-08-15 20:32 | DI.VRAD_ITS ---
PROCEDURE INFORMATION: Exam: XR Chest Exam date and time: 08/15/2021 8:13 PM Age: 71 years old Clinical indication: Other: General malaise TECHNIQUE: Imaging protocol: XR of the chest. Views: 2 views. COMPARISON: No relevant prior studies available. FINDINGS: Lungs: No infiltrates. No mass lesion or nodule seen. Pleural spaces: Unremarkable. No pleural effusion. No pneumothorax. Heart/Mediastinum: Unremarkable. No cardiomegaly. Bones/joints: Unremarkable. IMPRESSION: No evidence of pathology. Dictated and Authenticated by: Eyal Lindquist MD. Ordering:MAIA Callahan MD
[2021-08-15 21:26] LABS: D-Dimer 784 ng/mlFEU (<500)
--- NOTE | 2021-08-15 21:30 | DI.CT_ITS ---
Exam(s) CT CHEST PE CTA EXAM: CT CHEST PE CTA CLINICAL HISTORY: syncope, elevated dimer, covid+. TECHNIQUE: Imaging Protocol: Axial CT angiography was performed with multi-slice acquisition and mu lti-planar and/or 3D reconstructions. CONTRAST MATERIAL: Intravenous: Omnipaque 350 Contrast volume:structured data in ml COMPARISON: No exams were available for comparison FINDINGS: CT angiography of the chest was performed with intravenous infusion of 100 cc of Omnipaque 350. There are patchy ground-glass opacities in the right lung consistent with pneumonia, the patient is r eportedly COVID positive period. No pleural effusion. Tracheobronchial tree appears intact. Note is made of coronary artery calcifications. No cardiomegaly. No evidence of pulmonary embolic disease. Thoracic aorta is of normal diameter, no thoracic aortic an eurysm or dissection, major branch vessels appear intact. No mediastinal or hilar adenopathy. Images obtained through the upper abdomen show unremarkable appearance of the visualized portions of the liver, spleen, pancreas, adrenals, and kidneys. IMPRESSION: No evidence of pulmonary embolic disease. There are patchy areas of ground-glass opacity in the righ t lung consistent with acute pneumonitis, the patient is reportedly COVID positive,. RADIATION DOSE DELIVERED: 507.83mGy.cm Total DLP 507.83mGy.cm Total DLP CTDIvol DATA REPOSITORY: All CT scans at this facility are submitted to the National Radiology Data Registry (NRDR) Dose Index Registry (DIR) with the [employer] (ACR). RADIATION OPTIMIZATION: All CT scans at this facility use at least one of these dose optimization te chniques: automated exposure control; mA and/or kV adjustment per patient size (includes targeted exa ms where dose is matched to clinical indication); or iterative reconstruction.
[2021-08-15] MEDS: Omnipaque 350 MG/ML 100 ML BTL IJ (22:14)
[2021-08-15] MEDS: Normal Saline - Diluent 50 ML VIAL IV (22:14)
[2021-08-15] MEDS: Normal Saline 100 ML 310 ML (22:25)
--- NOTE | 2021-08-15 22:26 | DI.VRAD_ITS ---
PROCEDURE INFORMATION: Exam: CTA Chest With Contrast Exam date and time: 08/15/2021 9:33 PM Age: 71 years old Clinical indication: Other: Syncope, elevated dimer, covid+ TECHNIQUE: Imaging protocol: Computed tomographic angiography of the chest with contrast. 3D rendering (Not supervised by radiologist): MIP and/or 3D reconstructed images were created by the technologist. COMPARISON: CR XR CHEST 2V PA LATERAL 08/15/2021 8:16 PM FINDINGS: Pulmonary arteries: No evidence of pulmonary embolism. Aorta: Unremarkable. No aortic aneurysm. No aortic dissection. Lungs: Mild patchy areas of ground-glass parenchymal disease is seen in right upper lobe, middle lobe and lower lobe. Atelectasis in lingula and dependent portion of bilateral lung bases. Pleural spaces: Unremarkable. No pneumothorax. No pleural effusion. Heart: Cardiomegaly. Lymph nodes: Unremarkable. No enlarged lymph nodes. Bones/joints: Unremarkable. No acute fracture. Soft tissues: Unremarkable. IMPRESSION: 1. No evidence of pulmonary embolism. 2. Mild patchy areas of ground-glass parenchymal disease is seen in right upper lobe, middle lobe and lower lobe. Findings are consistent with COVID-19 pneumonitis. 3. Cardiomegaly. Dictated and Authenticated by: Eyal Lindquist MD. Ordering:MAIA Callahan MD
[2021-08-15 23:30] LABS: Troponin I < 0.05 ng/mL (<0.06)
== END 2021-08-15 23:59 | disposition home or self-care (01) ==
PROVIDERS: Emergency Provider Physician Assistant; PCP Student in an Organized Health Care Education/Training Program
DX: U07.1 COVID-19 (principal); R53.83 Other fatigue; R11.2 Nausea with vomiting, unspecified; R42 Dizziness and giddiness; V47.5XXA Car driver injured in collision with fixed or stationary object in traffic accident, initial encounter; R79.1 Abnormal coagulation profile; Z20.822 Contact with and (suspected) exposure to COVID-19
CPT/HCPCS: 36415; 71275; 80053; 87635; 93005; 96360; 96361; 96365; 99285; 70450; 71046; 81003; 81015; 83735; 84443; 84484; 85025; 85379; 93010; J3490

== ENCOUNTER 2022-01-15 13:06 | Outpatient (CLI) | payer OTHER, SELFPAY | END 2022-01-15 13:07 | disposition home or self-care (01) | PROVIDERS: PCP Student in an Organized Health Care Education/Training Program; Visit Provider Student in an Organized Health Care Education/Training Program ==

== ENCOUNTER 2022-03-19 06:44 | Outpatient (REF) | payer OTHER, SELFPAY ==
[2022-03-19 07:23] LABS: ALT 24 U/L (16-63); AST 15 U/L (15-37); Albumin 3.4 g/dL (3.4-5.0); Alkaline Phosphatase 89 U/L (46-116); Anion Gap 7.3 mmol/L (3-11); BUN 26 mg/dL (7-18); Bilirubin, Total 0.9 mg/dL (0.2-1.0); CO2 27.7 mmol/L (21.0-32.0); CREATININE 0.9 mg/dL (0.70-1.30); Calcium 8.1 mg/dL (8.5-10.1); Calculated LDL 168 mg/dL (<100); Chloride 108 mmol/L (98-107); Cholesterol 264 mg/dL (<200); Glucose 105 mg/dL (74-106); HDL Cholesterol 47 mg/dL (40-60); Potassium 4.6 mmol/L (3.5-5.1); Sodium 143 mmol/L (136-145); TSH (W/Ref FT4) 1.76 uIU/mL (0.36-3.74); Total Protein 6.8 g/dL (6.4-8.2); Triglyceride 249 mg/dL (<150)
[2022-03-19 19:11] LABS: PSA, Screening 0.4 ng/mL (<=4.5)
== END 2022-03-19 06:45 | disposition home or self-care (01) ==
LOC: LBN 06:44
PROVIDERS: PCP Student in an Organized Health Care Education/Training Program; Visit Provider Student in an Organized Health Care Education/Training Program
DX: I10 Essential (primary) hypertension (principal); R00.2 Palpitations; R79.89 Other specified abnormal findings of blood chemistry; E46 Unspecified protein-calorie malnutrition; I77.89 Other specified disorders of arteries and arterioles; N40.0 Benign prostatic hyperplasia without lower urinary tract symptoms; Z12.5 Encounter for screening for malignant neoplasm of prostate
CPT/HCPCS: 36415; 80053; 80061; 84153; 84443

== ENCOUNTER 2022-04-05 07:45 | Outpatient (REF) | payer OTHER, SELFPAY ==
[2022-04-05 08:10] LABS: Source Nasal/Nares
[2022-04-05 11:20] LABS: COVID-19 PCR Negative (Negative)
== END 2022-04-05 07:46 | disposition home or self-care (01) ==
LOC: LBN 07:45
PROVIDERS: PCP Student in an Organized Health Care Education/Training Program
DX: Z20.822 Contact with and (suspected) exposure to COVID-19 (principal); Z01.818 Encounter for other preprocedural examination
CPT/HCPCS: 87635

== ENCOUNTER 2022-06-04 07:46 | Outpatient (CLI) | payer OTHER, SELFPAY ==
--- OUTSIDE RECORDS SUMMARY | 2022-06-04 07:48 | XMS_ITS | CCD ---
:1950 Author Care Team Providers Name Role Phone TEREZA MOHR Attending Physician Unavailable TEREZA MOHR Rounding (Secondary) Physician Unavailab le Vital Signs Unknown or Not Available. Allergies Unknown or Not Available. Procedures Unknown or Not Available. History of Immunizations Unknown or Not Available. Problems Unknown or Not Available. Results Unknown or Not Available. Active Medications Unknown or Not Available. Medications Administered During Visit Unknown or Not Available. 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 Discharge Instructions You were admitted to [facility] on 09/18/2021 14:07 with a principal diagnosis of Atherosclerotic heart disease of [place] coronary artery without angina pectoris You were discharged from [facility] on 09/18/2021 08:11 Should you have any questions prior to d ischarge, please contact a member of your healthcare team. If you have left the ho spital and have any questions, please contact your primary care physician. Chief Complaint and Reason For Visit Unknown or Not Available. Function Status Unknown or Not Available. Plan of Care Unknown or Not Available. Referral/Transition of Care Unknown or Not Available.
--- OUTSIDE RECORDS SUMMARY | 2022-06-04 07:48 | XMS_ITS | CCD ---
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 Discharge Instructions You were admitted to [facility] on 12/12/2021 09:50 with a principal diagnosis of Atherosclerotic heart disease of [place] coronary artery with unspecified angina pectoris You were discharged from [facility] on 12/12/2021 00:00 Should you have any questions prior to [...]
--- OUTSIDE RECORDS SUMMARY | 2022-06-04 07:48 | XMS_ITS | Encounter Summary ---
:1950 Demographics Home Phone Preferred Language Unknown Marital Status Unknown Hinduism Affiliation Unknown Race Unknown Ethnic Group Unknown Author Organization [facility] Address [address] [place] [address] Care Team Providers Name Role Phone Unavailable Primary Care Provider Unavailable Encounter Details Date Type Department Care Team Description 12/01/2020 Lab Requisition [facility] Outr Resulting Lab, Pathology & Laboratory Provider [facility] [address] [place] [address] Social History Tobacco Use Types Packs/Day Years Used Date Never Assessed Sex Assigned at Date Recorded Not on file documented as of this encounter Plan of Treatment Not on filedocumented as of this encounter Procedures Procedure Name Priority Date/Time Associated Comments Diagnosis PSA TOTAL, Routine 11/30/2020 4:45 EST Results for this DIAGNOSTIC procedure are i n the results section. documented in this encounter Results PSA TOTAL, DIAGNOSTIC (11/30/2020 4:45 EST) Pathologist Sig nature PSA 0.4 0.0 - 4.5 ng/mL [facility] Specimen Blood - Venous blood (substance) Narrative [facility] - 12/02/2020 9:38 EST NOTE: Serum PSA concentration should not be in terpreted as absolute evidence for the presence or absence of malignant disease. Assayed on Siemens ADVIA Centaur XPT usi ng chemiluminescent technology.??Values obtained by using different assay methods cannot be used interchangeably. Performing Organization Address City/State/ZIP Code Phon e Number [facility] [address] [place] [address] SERVICES documented in this encounter Visit Diagnoses Not on filedocumented in this encounter
--- OUTSIDE RECORDS SUMMARY | 2022-06-04 07:48 | XMS_ITS | Encounter Summary ---
:1950 Demographics Home Phone Preferred Language Unknown Marital Status Unknown Confucianism Affiliation Unknown Race Unknown Ethnic Group Unknown Author Organization [facility] Address [address] [place] [address] Care Team Providers Name Role Phone Unavailable Primary Care Provider Unavailable Encounter Details Date Type Department Care Team Description 03/19/2022 Lab Requisition [facility] Outr Resulting Lab, Pathology & Laboratory Provider [facility] [address] [place] [address] Social History Tobacco Use Types Packs/Day Years Used Date Never Assessed Sex Assigned at Date Recorded Not on file documented as of this encounter Plan of Treatment Not on filedocumented as of this encounter Procedures Procedure Name Priority Date/Time Associated Comments Diagnosis PSA TOTAL, Routine 03/19/2022 5:20 EDT Results for this DIAGNOSTIC procedure are i n the results section. documented in this encounter Results PSA TOTAL, DIAGNOSTIC (03/19/2022 5:20 EDT) Pathologist Sig nature PSA 0.4 <=4.5 ng/mL [facility] Specimen Blood - Venous blood (substance) Narrative [facility] - 03/19/2022 19:07 EDT NOTE: Serum PSA concentration should not be in terpreted as absolute evidence for the presence or absence of malignant disease. Assayed on Siemens ADVIA Centaur XPT usi ng chemiluminescent technology.??Values obtained by using different assay methods cannot be used interchangeably. Performing Organization Address City/State/ZIP Code Phon e Number [facility] [address] [place] [address] SERVICES documented in this encounter Visit Diagnoses Not on filedocumented in this encounter
--- OUTSIDE RECORDS SUMMARY | 2022-06-04 07:48 | XMS_ITS | Encounter Summary ---
:1950 Demographics Home Phone Preferred Language Unknown Marital Status Unknown Restoration Affiliation Unknown Race Unknown Ethnic Group Unknown Author Organization [facility] Address [address] [place] [address] Care Team Providers Name Role Phone Unavailable Primary Care Provider Unavailable Encounter Details Date Type Department Care Team Description 07/29/2021 Lab Requisition [facility] Outr Resulting Lab, Pathology & Laboratory Provider [facility] [address] [place] [address] Social History Tobacco Use Types Packs/Day Years Used Date Never Assessed Sex Assigned at Date Recorded Not on file documented as of this encounter Plan of Treatment Not on filedocumented as of this encounter Procedures Procedure Name Priority Date/Time Associated Diagnosis Comme nts COVID-19 TEST [facility] Today 07/29/2021 11:06 LAB PCR EDT COVID-19 TESTING Routine 07/29/2021 11:06 Results for this EDT procedure are i n the results section. documented in this encounter Results COVID-19 TEST [facility] LAB PCR (07/29/2021 11:06 EDT) Specimen Swab - Entire nasopharynx (body structur e) Performing Organization Address City/State/ZIP Code Phon e Number [facility] [address] [place] [address] SERVICES COVID-19 TESTING (07/29/2021 11:06 EDT) COVID-19 rt-PCR Negative Negative [facility] Result Comment: [facility] This test has not been FDA c leared or approved. This test has been authorized by FDA under an EUA for use by authorized laboratories. This test has been authorized only for detection of nucleic acid fro SERVICES m 2019-nCoV, not for any oth er viruses or pathogens. This test is only authorized for the duration of the declaration that circumstances exist justifying the authorization of emergency use of in vitro d iagnostic tests for detectio n and/or diagnosis of 2019-nCoV under section 564(b)(1) of Act, 21 U.S.C ?? 360bbb-3(b) (1), unless the authorization is terminated or revoked sooner. Negative results do not prec lude 2019-nCoV infection and should not be used as the sole basis for treatment or other patient management decisions. Negative results must be combined with clinical observa tions, patient history, and epidemiological informatio n. Performed on the FoneSenseher Fusion instrument Performing Lab [place] [facility] Lab [facility] Specimen Swab Performing Organization Address City/State/ZIP Code Phon e Number [facility] [address] [place] [address] SERVICES documented in this encounter Visit Diagnoses Not on filedocumented in this encounter
[2022-06-04 09:12] LABS: ALT 24 U/L (16-63); AST 17 U/L (15-37); Albumin 3.8 g/dL (3.4-5.0); Alkaline Phosphatase 91 U/L (46-116); Anion Gap 7.7 mmol/L (3-11); BUN 24 mg/dL (7-18); Bilirubin, Direct 0.1 mg/dL (0.0-0.2); Bilirubin, Total 0.7 mg/dL (0.2-1.0); CO2 26.3 mmol/L (21.0-32.0); CREATININE 1.1 mg/dL (0.70-1.30); Calcium 8.5 mg/dL (8.5-10.1); Chloride 104 mmol/L (98-107); Estimated GFR 72.22 (mL/min/1.73m2); Glucose 129 mg/dL (74-106); Lipase 92 U/L (73-393); Potassium 4.2 mmol/L (3.5-5.1); Sodium 138 mmol/L (136-145); Total Protein 7.5 g/dL (6.4-8.2)
[2022-06-04 09:24] LABS: Calculated LDL 93 mg/dL (<100); Cholesterol 185 mg/dL (<200); HDL Cholesterol 44 mg/dL (40-60); Triglyceride 240 mg/dL (<150)
== END 2022-06-04 07:47 | disposition home or self-care (01) ==
LOC: LBN 07:47
PROVIDERS: PCP Student in an Organized Health Care Education/Training Program; Visit Provider Student in an Organized Health Care Education/Training Program
DX: K86.89 Other specified diseases of pancreas (principal); R10.12 Left upper quadrant pain; R19.8 Other specified symptoms and signs involving the digestive system and abdomen
CPT/HCPCS: 80048; 80061; 80076; 83690

== ENCOUNTER → 2022-08-27 03:03 | Outpatient (CLI) | payer OTHER, SELFPAY ==
--- NOTE | 2022-08-27 13:56 | DI.US_ITS ---
APPROVED REPORT EXAM: Comprehensive 2D, Doppler, and color-flow Echocardiogram Patient Location: Out-Patient Electric Switch Repairer: Selena Tamayo RDCS (AE) Indications: Ischemic cardiomyopathy Other Information Study Quality: Adequate Conclusion Normal left ventricular wall thickness and chamber size. Estimated ejection fraction is 40 to 45%. There is global hypokinesis The right ventricle is grossly normal in size and function Left atrium is mildly dilated. Right atrium is normal in size Aortic valve is sclerotic and bicuspid. There is mild to moderate aortic regurgitation. There is no aortic stenosis Normal mitral valve with mild regurgitation. There is mild mitral annular calcification Normal tricuspid valve with trace regurgitation. Estimated right ventricular systolic pressure is 34 mmHg Mildly dilated ascending aorta measuring 3.49 cm Wall motion Left Ventricle The left ventricle is normal size. Left ventricular systolic function is moderately decreased. There is normal left ventricular wall thickness. There is no ventricular septal defect visualized. LVEF is 40-45%. Right Ventricle Right ventricle is grossly normal in size. Right ventricular systolic function is grossly normal. The RVSP is 34.4 mmHg. Atria Left atrium is mildly dilated. The right atrium size is normal. The interatrial septum is intact with no evidence for an atrial septal defect. Aortic Valve The Aortic valve is sclerotic. Aortic valve is bicuspid. There is no aortic valvular stenosis. Mild t o moderate aortic regurgitation. Mitral Valve The mitral valve is normal in structure. Mild mitral annular calcification No evidence of mitral valv e stenosis. Mild mitral regurgitation. Tricuspid Valve The tricuspid valve is normal in structure. There is no tricuspid valve stenosis. Trace tricuspid reg urgitation. Pulmonic Valve The pulmonary valve is normal in structure. There is no pulmonic valvular stenosis. There is no pulmo pepe valvular regurgitation. Great Vessels The aortic root is normal in size. The ascending aorta is mildly dilated. IVC is normal in size and c ollapses >50% with inspiration. Pericardium There is no pericardial effusion. 2D Dimensions IVSD d PLAX 0.98 cm M: 0.6-1.2 LV Vol A2C d MOD 199.8 mL LVPW d PLAX 0.98 cm M: 0.6 - 1.2 LV Vol A4C d MOD 161.4 mL LVID d PLAX 5.34 cm M: 4.2 - 5.8 LA vol/ BSA A2C s A-L 46.8 mL/m2 LVDs 4.20 cm M: 2.5 - 4.0 LA vol/ BSA A4C s A-L 25.0 mL/m2 Ao Root d 3.42 cm M: 3.1 - 3.7 LA Vol/ BSA Biplane s A-L 35.6 mL/m2 RA Area A4C 16.74 cm2 LA Area A4C s MOD 18.61 cm2 RA Vol/ BSA A4C s A-L 23.1 mL/m2 LA Area A2C s MOD 26.49 cm2 Ao Asc Diam d 3.49 cm M: 2.6 - 3.4 LV EF A4C MOD 45.0 % LV EF Teichholz 41.8 % LV EF A2C MOD 45.6 % LVEF (De La Cruz's) 45.54 % M: 52 - 72 LV EF Biplane MOD 45.5 % LV Volume 134.46 mL M: 62 - 150 SV 82.63 mL LV Volume Index 64.95 mL/m2 M: 34 - 74 SV Index 39.84 mL/m2 LV Vol Biplane MOD 181.4 mL FS 20.65 % M-Mode TAPSE 2.91 cm (M/F) >1.7 LV Diastology MV E' medial 0.072 (>0.07 m/s) E/A Ratio 1.4 LV E/e MED 13.35 (<14) MV E Vmax 0.96 (0.4-1.3 m/s) MV E' lateral 0.096 (>0.1 m/s) MV A Vmax 0.70 (0.4-1.3 m/s) LV E/e LAT 9.95 (<14) MV E/A Ratio 1.35 MV E/E' medial 13.36 MV E/E' lateral 9.97 Aortic Valve LVOT Area 3.66 cm2 AoV Area Vmax 2.01 cm2 LVOT Vmax 0.75 m/s AoV Area/ BSA (Vmax) 0.97 cm2/m2 LVOT Mean Landon. 0.55 m/s KIRAN Mean Landon. 2.08 cm2 LVOT Peak Grad 2.2 mmHg KIRAN Mean Landon. Index 1.00 cm2/m2 LVOT Mean Grad 1.4 mmHg AR DT 1743 msec LVOT VTI 0.162 m AR PHT 506 msec LVOT Diam s 2.15 cm AoV Vmax 1.36 m/s Velocity Ratio 0.55 AoV Mean Landon. 0.97 m/s AoV Peak Grad 7.4 mmHg LVOT SV 59.17 mL AoV Mean Grad 4.2 mmHg AoV VTI 0.257 m AoV Area VTI 2.31 cm2 AoV Area/ BSA (VTI) 1.11 cm/m2 Mitral Valve MV DT 171 (160-240 msec) MV PHT 50 msec MV Area PHT 4.44 cm2 MV VTI 0.192 m MV Area VTI 3.09 (4.0-6.0 cm2) Pulmonary Valve PV Vmax 0.95 (0.5-1.5 m/s) RVOT Peak Gr. 0.88 mmHg PV Peak Grad 3.6 mmHg RVOT Mean Gr. 0.55 mmHg PV Mean Grad 2.1 mmHg RVOT VTI 0.100 m PV VTI 0.191 m RVOT Vmax 0.47 m/s Tricuspid Valve TR Peak Grad 31.4 mmHg TR Vmax 2.80 m/s RA Pressure 3.00 mmHg RVSP (TR) 34.4 mmHg
== END ==
PROVIDERS: PCP Student in an Organized Health Care Education/Training Program; Visit Provider Internal Medicine Cardiovascular Disease
DX: I25.5 Ischemic cardiomyopathy (principal)
CPT/HCPCS: 93306

== ENCOUNTER 2023-07-27 08:48 | Outpatient (CLI) | payer OTHER, SELFPAY ==
--- NOTE | 2023-07-27 08:45 | RT.EKG_ITS ---
APPROVED REPORT Exam: Resting ECG Reason for Exam: CAD Patient Location: O HR:72 bpm ECG Measurements Heart Rate 72 AXIS DE 174 P 28 QRSd 106 QRS -11 QT 415 T 12 QTc 455 Conclusion Sinus rhythm...normal P axis, V-rate 50- 99 Supraventricular bigeminy...bigeminy string>4 w/ SV complexes Low voltage, precordial leads...precordial leads <1.0mV Poor R wave progression
== END 2023-07-27 08:49 | disposition home or self-care (01) ==
LOC: DI.CARD 08:48
PROVIDERS: PCP Student in an Organized Health Care Education/Training Program; Visit Provider Internal Medicine Cardiovascular Disease
DX: I25.10 Atherosclerotic heart disease of native coronary artery without angina pectoris (principal); I42.9 Cardiomyopathy, unspecified; I48.0 Paroxysmal atrial fibrillation
CPT/HCPCS: 93010

== ENCOUNTER 2023-10-26 09:40 | Outpatient (REF) | payer OTHER, SELFPAY ==
--- NOTE | 2023-10-26 07:30 | SKI_PTH ---
PATIENT: [place] LOC: [facility] U#:[id number] AGE/SX: 73/M ROOM: RE10/26/[address]: Alejo Ludwig MD : 1950 BED: DIS: 10/26/2023 SPEC #: [id number] RECD: 10/27/23 12:29 STATUS: PERICO RECharlene #: [id number] SELINA: 10/26/23 07:[address]: Alejo Ludwig DEPT: Surgical Specimen RECD BY: Cassandra Rocha ENTERED: 10/27/23 12:30 SP TYPE: SKI OTHR DR: Sofy Will DO Tissues: 1 - SKIN BIOPSY(SHAVE/PUNCH) Procedures: SKIN LEVEL 4 Comments: [id number]
== END 2023-10-26 09:41 | disposition home or self-care (01) ==
LOC: LBN 09:40
PROVIDERS: PCP Student in an Organized Health Care Education/Training Program; Visit Provider Otolaryngology
DX: L82.1 Other seborrheic keratosis (principal)
CPT/HCPCS: 88305

== ENCOUNTER → 2023-11-17 11:11 | Outpatient (CLI) | payer OTHER, SELFPAY ==
--- NOTE | 2023-11-17 10:45 | DI.RAD_ITS ---
Exam(s) XR CHEST 2V PA LATERAL EXAM: XR CHEST 2V PA LATERAL CLINICAL HISTORY: evaluate pahology,sob, r06.02. TECHNIQUE: 2D digital imaging was performed. COMPARISON: CR,XR XR CHEST 2V PA LATERAL from 08/15/2021 FINDINGS: 2 views: Coronary artery stent noted Heart size is normal. The mediastinum is not widened. Lungs are clear. No infiltrates nor pleural effusions. IMPRESSION: No acute pulmonary findings.Coronary artery stent noted DATA REPOSITORY: RADIATION DOSE DELIVERED:
== END ==
PROVIDERS: PCP Student in an Organized Health Care Education/Training Program; Visit Provider Nurse Practitioner Family
DX: R06.02 Shortness of breath (principal)
CPT/HCPCS: 71046

== ENCOUNTER 2024-04-15 11:55 | Outpatient (REF) | payer OTHER, SELFPAY ==
[2024-04-15 15:35] LABS: Abs Immature Grans 0.03 10^3/uL (0.0-0.06); Absolute Basophil Count 0.03 10^3/uL (0.0-0.2); Absolute Eosinophil Count 0.07 10^3/uL (0.0-0.7); Absolute Lymphocyte Count 1.38 10^3/uL (1.2-3.4); Absolute Monocyte Count 1.42 10^3/uL (0.1-0.8); Absolute Neutrophil Count 7.81 10^3/uL (1.2-6.7); Basophils % 0.3 %; Eosinophils % 0.7 %; HCT 46.4 % (40.0-50.0); HGB 15.6 g/dL (13.5-17.5); Immature Grans % 0.3 %; Lymphocytes % 12.8 %; MCH 29.9 pg (27.0-33.0); MCHC 33.6 % (32.0-36.0); MCV 89 fL (80-95); MPV 11.8 fL (8.0-11.0); Monocytes % 13.2 %; Neutrophils % 72.7 %; Platelet Count 137 10^3/uL (130-400); RBC 5.21 10^6/uL (4.36-5.78); RDW 13.2 % (11.8-14.1); RDW-SD 43.5 fL; WBC 10.74 10^3/uL (4.4-10.8)
[2024-04-15 15:46] LABS: ALT 24 U/L (16-63); AST 19 U/L (15-37); Albumin 3.6 g/dL (3.4-5.0); Alkaline Phosphatase 63 U/L (46-116); Anion Gap 11.7 mmol/L (3-11); BUN 31 mg/dL (7-18); Bilirubin, Total 1.56 mg/dL (0.2-1.0); CO2 24.3 mmol/L (21.0-32.0); CREATININE 1.2 mg/dL (0.70-1.30); Calcium 8.4 mg/dL (8.5-10.1); Chloride 100 mmol/L (98-107); Estimated GFR 64.65 (mL/min/1.73m2); Glucose 109 mg/dL (74-106); Potassium 3.9 mmol/L (3.5-5.1); Sodium 136 mmol/L (136-145); Total Protein 7.1 g/dL (6.4-8.2)
== END 2024-04-15 11:56 | disposition home or self-care (01) ==
LOC: LBN 11:55
PROVIDERS: PCP Student in an Organized Health Care Education/Training Program; Visit Provider Nurse Practitioner Family
DX: M79.662 Pain in left lower leg (principal); L03.116 Cellulitis of left lower limb; R60.0 Localized edema; I10 Essential (primary) hypertension
CPT/HCPCS: 80053; 85025

== ENCOUNTER 2024-11-18 11:49 | Emergency (ER) | payer OTHER, SELFPAY ==
[2024-11-18 11:59] VITALS: BP 115/53; PULSE 122; RESP 18; TEMP 36.4; O2SAT 94
--- NOTE | 2024-11-18 12:24 | W.ED.GENAD ---
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 Primary Care Provider: Sofy Will ED Provider: Jolanta Lui Home Meds and New Rx's Prescriptions: New prednisone 20 mg tablet 40 mg PO DAILY 5 Days Qty: 10 0RF Rx Instructions: Take 2 tablets daily for the next 5 days baclofen 5 mg tablet 5 mg PO QHS PRN (Reason: muscle spasm) Qty: 7 0RF Rx Instructions: Please take 1 tablet by mouth at bedtime as needed for muscle spasm and pain lidocaine 5 % adhesive patch,medicated 1 patch topical DAILY Qty: 15 0RF Rx Instructions: leave on most painful area for up to 12 hrs Continued ascorbic acid (vitamin C) 500 mg tablet 2 gm PO DAILY vitamin B complex capsule 1 cap PO DAILY vitamin E (dl, acetate) 400 unit capsule 400 unit PO DAILY coenzyme Q10 [CoQ-10] 100 mg capsule 100 mg PO DAILY calcium-magnesium 500-250 mg tablet 2 tab PO DAILY beta carotene 25,000 unit capsule 25,000 unit PO DAILY Rx Instructions: administer with a meal omega-3 fatty acids 500 mg capsule 500 mg PO DAILY dietary supplement Capsule 2 cap PO DAILY Patient Comments: Pt reports Tumeric/Elvira 2 caps per day.HE apple cider vinegar 300 mg tablet 300 mg PO TID Patient Comments: Apple Cider Vinegar 3 gummies per day.HE (DME) Aerochamber MV Spacer See Rx Instructions .Route Qty: 1 0RF Rx Instructions: As directed ibuprofen 200 mg tablet 200 mg PO Q6H PRN rosuvastatin 20 mg tablet 20 mg PO DAILY Qty: 90 3RF ezetimibe 10 mg tablet 10 mg PO DAILY Qty: 90 3RF tadalafil [Cialis] 10 mg tablet 10 mg PO DAILY PRN (Reason: sexual activity) Qty: 20 5RF Rx Instructions: administer approximately 30min before sexual activity; do not use more than 1 dose per 24hrs cholecalciferol (vitamin D3) 25 mcg (1,000 unit) capsule 25 mcg PO DAILY Qty: 30 0RF Rx Instructions: otc cyclobenzaprine 5 mg tablet 5 mg PO TID PRN (Reason: muscle spasm) Qty: 20 0RF Entresto 49-51 mg tablet 1 tab PO BID Qty: 180 3RF carvedilol 25 mg tablet 25 mg PO BID Qty: 180 3RF Rx Instructions: must administer with a meal/food Discharge Instructions Instructions: Radiculopathy of the neck and back (including sciatica) Additional Instructions: The CT shows spondylosis of your lumbar spine. Please keep your appointment for the MRI and follow-up with your primary care as previously scheduled. Alternate ice and heat. Please take the medications as directed. Return to the ER for any loss of bowel or bladder control, feeling like you need to pee or have a bowel movement but can not, numbness or tingling around your rectal or groin area or concerns. Follow up with primary care provider in 3-5 days. Return to ED sooner if any worsening or concerns. Please take Tylenol or Ibuprofen with food every 4-6 hours as needed for pain and swelling. Referrals: Sofy Will DO [Primary Care Provider] - 1 week Discharge Data Discharge Date/Time-TO BE ENTERED AT DEPARTURE: 11/18/24 15:54 HPI General Mode of arrival: ambulatory. Date/Time Provider Initiated Documentation: 11/18/24 12:04. Limitations to Documentation: no limitations. Information obtained by: patient, RN notes reviewed and old records reviewed. HPI Narrative: 74-year-old male presents to the ER with a chief complaint of lower back pain and radiation down into his left foot. This has been ongoing for the last 7 weeks. He was seen by his PCP couple weeks ago was given a prednisone taper and had a MRI ordered which he is scheduled for on the fourth. He denies any saddle anesthesia denies any loss of bowel or bladder control. He does note foot drop on the left side. He reports that today he has got sharp stabbing pain to his left lower lumbar region. He also has some stabbing pain to his left lateral ankle. 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 He does have a past medical history of hypertension, paroxysmal atrial fibrillation high cholesterol, history of aortic and mitral regurgitation, cardiomyopathy and CAD. Related Data Home Medications ?Medication ?Instructions ?Recorded ?Confirmed ascorbic acid (vitamin C) 500 mg 2 gm PO DAILY 04/12/19 11/18/24 tablet vitamin B complex 1 cap PO DAILY 04/12/19 11/18/24 calcium-magnesium 500 mg-250 mg 2 tab PO DAILY 04/19/19 11/18/24 tablet coenzyme Q10 100 mg capsule 100 mg PO DAILY 04/19/19 11/18/24 (CoQ-10) vitamin E (dl, acetate) 180 mg 400 unit PO DAILY 04/19/19 11/18/24 (400 unit) capsule beta carotene 7,500 mcg (25,000 25,000 unit PO DAILY 07/11/20 11/18/24 unit) capsule omega-3 fatty acids 500 mg capsule 500 mg PO DAILY 10/17/20 11/18/24 cholecalciferol (vitamin D3) 25 25 mcg PO DAILY #30 caps 10/16/22 11/18/24 mcg (1,000 unit) capsule apple cider vinegar 300 mg tablet 300 mg PO TID 05/28/23 11/18/24 dietary supplement 2 cap PO DAILY 05/28/23 11/18/24 inhalational spacing device #1 ea 11/17/23 11/16/24 (Aerochamber MV spacer) sacubitril 49 mg-valsartan 51 mg 1 tab PO BID #180 tabs 12/20/23 11/18/24 tablet (Entresto) carvedilol 25 mg tablet 25 mg PO BID HTN #180 tabs 06/07/24 11/18/24 cyclobenzaprine 5 mg tablet 5 mg PO TID PRN muscle spasm #20 10/18/24 11/18/24 tabs ezetimibe 10 mg tablet 10 mg PO DAILY #90 tabs 11/16/24 11/18/24 ibuprofen 200 mg tablet 200 mg PO Q6H PRN 11/16/24 11/18/24 rosuvastatin 20 mg tablet 20 mg PO DAILY #90 tabs 11/16/24 11/18/24 tadalafil 10 mg tablet (Cialis) 10 mg PO DAILY PRN sexual activity 11/16/24 11/18/24 #20 tabs baclofen 5 mg tablet 5 mg PO QHS PRN muscle spasm #7 11/18/24 tabs lidocaine 5 % topical patch 1 patch topical DAILY #15 ea 11/18/24 prednisone 20 mg tablet 40 mg (2 x 20 mg) PO DAILY 11/18/24 Arthritis 5 days #10 tabs Previous Rx's ?Medication ?Instructions ?Recorded cholecalciferol (vitamin D3) 25 25 mcg PO DAILY #30 caps 10/16/22 mcg (1,000 unit) capsule inhalational spacing device #1 ea 11/17/23 (Aerochamber MV spacer) sacubitril 49 mg-valsartan 51 mg 1 tab PO BID #180 tabs 12/20/23 tablet (Entresto) carvedilol 25 mg tablet 25 mg PO BID HTN #180 tabs 06/07/24 cyclobenzaprine 5 mg tablet 5 mg PO TID PRN muscle spasm #20 10/18/24 tabs ezetimibe 10 mg tablet 10 mg PO DAILY #90 tabs 11/16/24 rosuvastatin 20 mg tablet 20 mg PO DAILY #90 tabs 11/16/24 tadalafil 10 mg tablet (Cialis) 10 mg PO DAILY PRN sexual activity 11/16/24 #20 tabs baclofen 5 mg tablet 5 mg PO QHS PRN muscle spasm #7 11/18/24 tabs lidocaine 5 % topical patch 1 patch topical DAILY #15 ea 11/18/24 prednisone 20 mg tablet 40 mg (2 x 20 mg) PO DAILY 11/18/24 Arthritis 5 days #10 tabs Allergies Allergy/AdvReac Type Severity Reaction Status Date / Time lisinopril AdvReac cough Verified 11/18/24 12:02 simvastatin AdvReac myalgias Verified 11/18/24 12:02 General Stated Complaint: Orthopedic FRANCO: 4 Review of Systems All systems reviewed & are unremarkable except as noted in HPI and below Musculoskeletal Musculoskeletal: Reports as per HPI, Reports abnormal gait, Reports back pain, Reports muscle weakness (Left foot), Reports radiating pain into limb and Reports tingling Neurologic Neurologic: Reports as per HPI, Reports abnormal gait and Reports tingling Course Vital Signs Vital signs: Vital Signs Temperature 36.4 C 11/18/24 11:59 Pulse 122 H 11/18/24 11:59 Respiratory Rate 18 11/18/24 11:59 Blood Pressure 115/53 L 11/18/24 11:59 Pulse Oximetry 94 11/18/24 11:59 Temperature 36.4 C 11/18/24 11:59 Pulse 122 H 11/18/24 11:59 Respiratory Rate 18 11/18/24 11:59 Blood Pressure 115/53 L 11/18/24 11:59 Pulse Oximetry 94 11/18/24 11:59 Oxygen Delivery Method Room Air 11/18/24 11:59 Oxygen Flow Rate 0 11/18/24 11:59 Medical Decision Making 74-year-old male presents to the ER with a chief complaint of lower back pain and radiation down into his left foot. This has been ongoing for the last 7 weeks. He was seen by his PCP couple weeks ago was given a prednisone taper and had a MRI ordered which he is scheduled for on the fourth. He denies any saddle anesthesia denies any loss of bowel or bladder control. He does note foot drop on the left side. He reports that today he has got sharp stabbing pain to his left lower lumbar region. He also has some stabbing pain to his left lateral ankle. 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 He does have a past medical history of hypertension, paroxysmal atrial fibrillation high cholesterol, history of aortic and mitral regurgitation, cardiomyopathy and CAD. CT T and L-spine ordered, prednisone 60 mg p.o. and lidocaine patch. Discussed CT results, patient given a disc from radiology prior to discharge. Patient was ambulatory upon discharge. Reports feeling somewhat better after the medications. All their questions were answered to the best my ability. This text was generated using [employer] dictation system, please disregard any oddities of phrase or misspellings. Imaging Data Radiologic Study: Imaging: CT Scan Radiologist's impression: [facility] CT L-spine COMPARISON: No relevant prior studies available. FINDINGS: Bones/joints: The spinal canal is diminutive with congenitally shortened pedicles, anatomic variant. There is multilevel spondylosis overall mild with stenosis L2-L3, L3-L4, severe at L4-L5. Vertebral body height is well preserved. Alignment is essentially anatomic. Stomach and bowel: Sigmoid anastomosis noted. Vasculature: Moderate atherosclerotic change present in the vasculature. Soft tissues: Unremarkable. IMPRESSION: Congenitally shortened pedicles with multilevel stenosis, most severe L4-L5. Thank you for allowing us to participate in the care of your patient. Dictated and Authenticated by: Alcira Vera MD [facility] CT T-spine maging protocol: Computed tomography of the thoracic spine without contrast. Radiation optimization: All CT scans at this facility use at least one of these dose optimization techniques: automated exposure control; mA and/or kV adjustment per patient size (includes targeted exams where dose is matched to clinical indication); or iterative reconstruction. COMPARISON: CT CHEST PE CTA 08/15/2021 9:57 PM FINDINGS: Bones/joints: No acute fracture. Normal alignment. No significant disc bulge or herniation. No severe spinal canal stenosis. No significant neural foraminal narrowing. Soft tissues: Unremarkable. Vasculature: Moderate atherosclerotic change present in the vasculature. Other findings: Respiratory motion noted. IMPRESSION: No acute abnormality evident. 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 No pain when sleeping on left side. No swelling/bruising/injury. Essential hypertension (Acute) LUQ abdominal pain (Acute) Hypercholesterolemia (Acute) 11/20/20- [facility] note, Cardiology. Dr. Rigo Anthony MD Shortness of breath (Acute) 11/20/20-Cardiology, [facility]. Rigo Anthony MD CAD (coronary artery disease) (Chronic) 3 stents Cardiomyopathy (Acute) Ischemic CMP started on entresto by Dr. 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 Medical History Sigmoid colon ulcer Presumed, as pt denies rectal cancer Hx. December 2020 col notes Hx (2) surgeries, with anastomoses @ 5, 10cm. COVID-19 History of rectal cancer Tubulovillous adenoma of rectum, s/p colectomy (reversed 2012). Dania 2014. PT. DENIES THIS Sensorineural hearing loss, bilateral 08/07/20 Audio [facility], Katelyn Rashard Arthur Seborrheic keratosis Suspicious nevus Xerosis cutis Erectile dysfunction Transient global amnesia PAF (paroxysmal atrial fibrillation) PT. STATES HE IS UNAWARE OF THIS AND HAS NEVER RECIEVED A FORMAL DX OF THIS Surgical History History of colonoscopy (~12/2020) History of colectomy with colostomy for 4 months.. Hx 2 surgeries, @ sigmoid. Anastomosis WNL per colo, 12/2020. H/O heart artery stent x2 Status post carotid surgery (07/18/19) coil embolization rgt carotid, [facility] 06/2019 Family History Brother Asthma Father Pancreatic cancer Social History Smoking/Tobacco Use Status: Never Smoking risk assessment performed?: Yes Alcohol Intake: current Alcohol Intake frequency: a few times a month Alcohol type: beer Drug use: Never Substance use type: does not use Adopted: No Caregiver/Support person: No Foster care: No Household members: spouse Housing: house Number of Children: 5 Communication Needs: None Education Level: college Do you need help understanding health information?: Never current occupation: Doctor of Chiropractic, Semi-Retired. Self Employed Pets and animals: Yes (4 dogs, 3 cats) Pets and animals: cat(s) and dog(s) Sexually active: Yes Do you think of yourself as: straight/heterosexual Current gender identity: male What is your relationship status?: How often do you talk on the phone with friends or family?: once per week How often do you get together with friends or relatives?: three or more times per week Do you belong to any clubs or organized social groups?: no Panel score (0-1 are the most socially isolated patients): 2 Duration: 30-45 minutes/day Frequency: daily Marissa/Anglican: Presybeterian Special marissa needs: No Seatbelt use: always Helmet use: No Drive intox or ride w/intox otr driver: No Do you feel safe at home: Yes Do you feel safe in your relationship?: Yes
[2024-11-18] MEDS: predniSONE 20 MG TAB 60 MG PO (12:43)
[2024-11-18] MEDS: Lidocaine 5% Patch 1 PATCH TP (12:43)
--- NOTE | 2024-11-18 13:59 | DI.CT_ITS ---
Exam(s) CT THORACIC LUMBAR SPINE WO EXAM: CT THORACIC LUMBAR SPINE WO CLINICAL HISTORY: Left leg radiculopathy. TECHNIQUE: Imaging Protocol: Axial computed tomography images with coronal and sagittal reformatted images were created and reviewed. COMPARISON: CT CT CHEST PE CTA from 08/15/2021 FINDINGS: Bones: No definite fractures or dislocations are seen. There does appear to be artifact in the left aspect of the inferior endplate of L2. The alignment of the spine is normal including the cervicothor acic junction and the thoracolumbar junction. Age-appropriate degenerative changes are seen in the t horacic spine. There are degenerative changes also seen in the lumbar spine. Soft tissues: The soft tissues are unremarkable. There is a large central disc herniation at L4-L5 ca using central spinal canal stenosis. There are degenerative changes seen in the facets causing mild narrowing of the neural foramen at L4-5 and L5-S1. Vacuum discs are seen at L4-5 and L5-S1. There a re postsurgical changes of an anastomosis within the sigmoid colon. IMPRESSION: 1. No definite acute fracture or subluxation. If is continue clinical concern for fracture, a follow -up CT scan may be obtained for further evaluation. 2. Large disc herniation at L4-L5 causing central spinal canal stenosis. MRI should be considered fo r further evaluation. 3. Degenerative changes seen in the thoracic and lumbar spine as described above. Unexpected findings RADIATION DOSE DELIVERED: 1,823.45mGy.cm Total DLP DATA REPOSITORY: All CT scans at this facility are submitted to the National Radiology Data Registry (NRDR) Dose Index Registry (DIR) with the [employer] (ACR). RADIATION OPTIMIZATION: All CT scans at this facility use at least one of these dose optimization te chniques: automated exposure control; mA and/or kV adjustment per patient size (includes targeted exa ms where dose is matched to clinical indication); or iterative reconstruction.
[2024-11-18 15:28] VITALS: BP 135/61; PULSE 80; O2SAT 99
--- NOTE | 2024-11-18 15:28 | DI.VRAD_ITS ---
PROCEDURE INFORMATION: Exam: CT Thoracic Spine Without Contrast Exam date and time: 11/18/2024 1:48 PM Age: 74 years old Clinical indication: Other: Left leg radiculopathy TECHNIQUE: Imaging protocol: Computed tomography of the thoracic spine without contrast. Radiation optimization: All CT scans at this facility use at least one of these dose optimization techniques: automated exposure control; mA and/or kV adjustment per patient size (includes targeted exams where dose is matched to clinical indication); or iterative reconstruction. COMPARISON: CT CHEST PE CTA 08/15/2021 9:57 PM FINDINGS: Bones/joints: No acute fracture. Normal alignment. No significant disc bulge or herniation. No severe spinal canal stenosis. No significant neural foraminal narrowing. Soft tissues: Unremarkable. Vasculature: Moderate atherosclerotic change present in the vasculature. Other findings: Respiratory motion noted. IMPRESSION: No acute abnormality evident. PROCEDURE INFORMATION: Exam: CT Lumbar Spine Without Contrast Exam date and time: 11/18/2024 1:48 PM Age: 74 years old Clinical indication: Other: Left leg radiculopathy TECHNIQUE: Imaging protocol: Computed tomography of the lumbar spine without contrast. Radiation optimization: All CT scans at this facility use at least one of these dose optimization techniques: automated exposure control; mA and/or kV adjustment per patient size (includes targeted exams where dose is matched to clinical indication); or iterative reconstruction. COMPARISON: No relevant prior studies available. FINDINGS: Bones/joints: The spinal canal is diminutive with congenitally shortened pedicles, anatomic variant. There is multilevel spondylosis overall mild with stenosis L2-L3, L3-L4, severe at L4-L5. Vertebral body height is well preserved. Alignment is essentially anatomic. Stomach and bowel: Sigmoid anastomosis noted. Vasculature: Moderate atherosclerotic change present in the vasculature. Soft tissues: Unremarkable. IMPRESSION: Congenitally shortened pedicles with multilevel stenosis, most severe L4-L5. Dictated and Authenticated by: Alcira Vera MD. Orderin Noe Stover MD
== END 2024-11-18 15:54 | disposition home or self-care (01) ==
PROVIDERS: Emergency Provider Registered Nurse Emergency; PCP Student in an Organized Health Care Education/Training Program
DX: M47.27 Other spondylosis with radiculopathy, lumbosacral region (principal)
CPT/HCPCS: 99284; 72128; 72131; 99283; J7512

== ENCOUNTER 2024-11-23 02:02 | Outpatient (CLI) | payer OTHER, SELFPAY ==
--- NOTE | 2024-11-23 07:45 | DI.MRI_ITS ---
Exam(s) MR LUMBAR SPINE WO EXAM: MR LUMBAR SPINE WO CLINICAL HISTORY: left foot drop,sciatica lt side,lt leg weakness,r29.898,m54,32. TECHNIQUE: Multiplanar multisequence MRI of the Lumbar spine was performed. COMPARISON: CT CT THORACIC LUMBAR SPINE WO from 11/18/2024 FINDINGS: Bones: The last intervertebral disc space is designated the L5/S1 level for the numbering purpose of this ex amination. The vertebral body heights are well maintained. Alignment: Unremarkable. The marrow signal characteristics are unremarkable. Cord: The conus tip ends at the T12 level. It is of normal size and signal intensity. T12-L1: No focal disc herniation is present. No central spinal canal stenosis.No neural foraminal st enosis. L1-2:Minimal disc bulging. No focal disc herniation is present. No central spinal canal stenosis.No neural foraminal stenosis. L2-3:Minimal disc bulging and small endplate osteophytes. No focal disc herniation is present. No c entral spinal canal stenosis.No neural foraminal stenosis. L3-4: Broad-based disc osteophytes. Facet degenerative changes and ligamentous hypertrophy combine w ith disc bulging to produce mild central canal stenosis.No focal disc herniation is present.No neural foraminal stenosis. L4-5: The disc height is maintained. There is a large central disc protrusion causing severe central canal stenosis. The herniated disc material measures 10 millimeters AP by 9 millimeters transverse by 11 millimeters cephalo caudad. Mild left neural foraminal stenosis secondary to disc bulging and facet encroachment.. L5-S1: Loss of disc height eccentric toward the left where there are endplate osteophytes and mild disc bulging. No focal disc herniation is present. No central spinal canal stenosis.Mild left neur al foraminal stenosis. The visualized SI joints and sacrum are unremarkable. Soft tissues: The paraspinal soft tissues are unremarkable. IMPRESSION: Large central disc protrusion at L4-5 causing severe central canal stenosis. DATA REPOSITORY:
== END 2024-11-23 02:22 ==
LOC: DI 02:02
PROVIDERS: PCP Student in an Organized Health Care Education/Training Program; Visit Provider Emergency Medicine
DX: M54.32 Sciatica, left side (principal); R29.898 Other symptoms and signs involving the musculoskeletal system
CPT/HCPCS: 72148

== ENCOUNTER 2024-12-20 08:17 | Outpatient (CLI) | payer OTHER, SELFPAY ==
--- NOTE | 2024-12-20 08:15 | RT.EKG_ITS ---
APPROVED REPORT Exam: Resting ECG Reason for Exam: PAF Patient Location: O HR:82 bpm ECG Measurements Heart Rate 82 AXIS NJ 177 P 17 QRSd 85 QRS -18 QT 392 T 0 QTc 458 Conclusion Sinus rhythm...normal P axis, V-rate 50- 99 Supraventricular bigeminy...bigeminy string>4 w/ SV complexes Poor R wave progression
== END 2024-12-20 08:18 | disposition home or self-care (01) ==
LOC: DI.CARD 08:18
PROVIDERS: PCP Nurse Practitioner Family; Visit Provider Registered Nurse
DX: I25.10 Atherosclerotic heart disease of native coronary artery without angina pectoris (principal); I48.0 Paroxysmal atrial fibrillation
CPT/HCPCS: 93010

== ENCOUNTER 2024-12-29 11:32 | Outpatient (CLI) | payer OTHER, SELFPAY ==
[2024-12-29 11:20] LABS: Calculated LDL 175 mg/dL (<100); Cholesterol 267 mg/dL (<200); HDL Cholesterol 49 mg/dL (>or=40); Triglyceride 217 mg/dL (<150)
[2024-12-29 12:21] LABS: Anion Gap 9.4 mmol/L (3-11); BUN 23 mg/dL (7-18); CO2 27.6 mmol/L (21.0-32.0); Chloride 105 mmol/L (98-107); Estimated GFR 79.97 (mL/min/1.73m2); Glucose 100 mg/dL (74-106); Potassium 4.7 mmol/L (3.5-5.1); Sodium 142 mmol/L (136-145)
== END 2024-12-29 11:33 | disposition home or self-care (01) ==
LOC: LBO 11:33
PROVIDERS: Emergency Medicine; PCP Nurse Practitioner Family; Visit Provider Nurse Practitioner Family
DX: R73.09 Other abnormal glucose (principal); E78.00 Pure hypercholesterolemia, unspecified; Z01.811 Encounter for preprocedural respiratory examination
CPT/HCPCS: 36415; 80048; 80061; 83036

== ENCOUNTER 2025-04-19 01:14 | Outpatient (CLI) | payer OTHER, SELFPAY ==
--- NOTE | 2025-04-19 06:30 | DI.US_ITS ---
APPROVED REPORT EXAM: Comprehensive 2D, Doppler, and color-flow Echocardiogram Patient Location: [facility] Cashier: Selena Tamayo RDCS (AE) Indications: LV function, AI, Cardiomyopathy, Aortic regurgitation Other Information Study Quality: Adequate Conclusion Normal left ventricular wall thickness and chamber size. Ejection fraction is 40 to 45%. There is global hypokinesis Normal right ventricular size and function Both atria are normal in size Aortic valve is sclerotic and bicuspid. There is no hemodynamically significant aortic stenosis. There is mild aortic regurgitation Ascending aorta measures 3.51 cm Estimated right ventricular systolic pressure is 22 mmHg Wall motion Left Ventricle The left ventricle is normal size. Left ventricular systolic function is moderately decreased. There is normal left ventricular wall thickness. There is global hypokinesis of the left ventricle. There is no ventricular septal defect visualized. LVEF is 36%. Right Ventricle The right ventricle is normal size. The right ventricular systolic function is normal. Atria The left atrium size is normal. The right atrium size is normal. The interatrial septum is intact with no evidence for an atrial septal defect. Aortic Valve Aortic valve is bicuspid. There is no aortic valvular stenosis. Mild aortic regurgitation. Mitral Valve The mitral valve is normal in structure. No evidence of mitral valve stenosis. Trace mitral regurgitation. Tricuspid Valve The tricuspid valve is normal in structure. There is no tricuspid valve stenosis. Trace tricuspid regurgitation. The RVSP is 21.8_ mmHg. Pulmonic Valve The pulmonary valve is normal in structure. There is no pulmonic valvular stenosis. There is no pulmonic valvular regurgitation. Great Vessels The aortic root is normal in size. The ascending aorta is mildly dilated. Aortic arch is not well visualized. IVC is normal in size and collapses >50% with inspiration. Pericardium There is no pericardial effusion. 2D Dimensions IVSD d PLAX 1.00 cm M: 0.6-1.2 Ao Root d 3.46 cm M: 3.1 - 3.7 LVPW d PLAX 1.00 cm M: 0.6 - 1.2 Ao Asc Diam d 3.51 cm M: 2.6 - 3.4 LVID d PLAX 5.40 cm M: 4.2 - 5.8 LVDs 4.37 cm M: 2.5 - 4.0 LV EF Teichholz 37.6 % FS 18.32 % LV EDV (Teich) 138.7 mL LV ESV (Teich) 86.5 mL M-Mode TAPSE 2.15 cm (M/F) >1.7 Auto EF LV EDV A4C 115.3 mL LV EDV A2C 159.6 mL LV EDV BP 135.2 mL LV ESV A4C 71.5 mL LV ESV A2C 103.5 mL LV ESV BP 86.5 mL LVEF(%) A4C 38.0 % LVEF(%) A2C 35.2 % LVEF(%) BP 36.1 % LV SV A4C 43.9 ml LV SV A2C 56.1 ml LV SV BP 48.8 ml LV CO A4C 3.3 L/min LV CO A2C 4.2 L/min LV CO BP 3.7 L/min HR A4C 74.08 BPM HR A2C 74.23 BPM LV EDV Index (BP) LV Strain Long Pk Overal Avg (s) 11.62 LA Volume LA Length A4C 5.0 cm LA Length A2C 5.4 cm LA Area A4C s 17.22 cm2 LA Area A2C s 20.13 cm2 LA Vol A4C A-L 50.14 mL LA Vol A2C A-L 63.81 mL LA Vol Biplane A-L 58.6 mL LA Vol/BSA A4C A-L LA Vol/BSA A2C A-L LA Vol/BSA BP A-L 28.0 mL/m2 LA Vol A4C MOD 48.2 mL LA Vol A2C MOD 56.5 mL LA Vol BP MOD 53.9 mL RA Volume RA Area A4C 12.4 cm2 RA ESV A4C (A-L) 29.3mL RA Vol/BSA A4C A-L RA Length A4C 4.4 cm RA ESV A4C (MOD) 28.8mL LV Diastology MV E' lateral 0.082 (>0.1 m/s) MV E Vmax 0.53 (0.4-1.3 m/s) MV E/E' LAT 6.45 (<14) MV A Vmax 0.90 (0.4-1.3 m/s) E/A Ratio 0.6 Aortic Valve AoV Vmax 1.58 m/s LVOT Vmax 0.87 m/s AoV Peak Grad 35.6 mmHg LVOT Peak Grad 3.0 mmHg AoV Area (Vmax) 2.04 cm2 LVOT VTI 0.206 m AoV VTI 0.347 m LVOT Mean Grad 1.5 mmHg AoV Mean Landon. 1.16 m/s LVOT SV 76.57 mL AoV Mean Grad 6.1 mmHg LVOT Diam s 2.15 cm AoV Area (VTI) 2.21 cm2 Velocity Ratio 0.55 AR Decel Tate 1.4m/sec2 AR DT 2834 msec AR PHT 822 msec AR Vmax 3.91 m/s Mitral Valve MV DT 220 (160-240 msec) MV Vmax TIPS 0.85 m/s MV Mean Grad 1.0 (<2mmHg) MV VTI 0.253 m Pulmonary Valve PV Vmax 1.03 (0.5-1.5 m/s) RVOT Vmax 0.53 m/s PV Peak Grad 4.2 mmHg RVOT Peak Gr. 1.1 mmHg PV Mean Landon 0.62 m/s RVOT VTI 0.119 m PV Mean Grad 1.9 mmHg RVOT Mean Gr. 0.7 mmHg Tricuspid Valve RA Pressure 3.00 mmHg TR Vmax 2.12 m/s TV S' 0.10 m/s TR Peak Grad 17.9 mmHg RVSP (TR) 21.0 mmHg
== END 2025-04-19 01:34 ==
LOC: DI 01:14
PROVIDERS: PCP Nurse Practitioner Family; Visit Provider Internal Medicine Cardiovascular Disease
DX: I25.5 Ischemic cardiomyopathy (principal); Q23.1 Congenital insufficiency of aortic valve
CPT/HCPCS: 93306